=== PATIENT | female | born 1935 | race Caucasian/White ===

== ENCOUNTER 2017-09-04 14:22 | Emergency (ER) | payer OTHER ==
[~2017-09-04 14:22] MED LIST: ALBUAER19 INH; CHOL1000 PO; GABA100C13 PO; LANS30CA63 PO; LORA0.5T12 PO; LOSA100T65 PO; NEBI10TA2 PO; TRAM-453 PO; WARF-246 PO
[2017-09-04 14:25] VITALS: TEMP 36.3
[2017-09-04 15:02] VITALS: O2SAT 97
--- NOTE | 2017-09-04 15:05 | EMERGENCY ROOM VISIT NOTE ---
History Report prepared by Tomasa: Priyanka Nguyen Under the Supervision of: Dr. Avery Parks M.D. First contact with patient: 14:27 Chief Complaint: CHEST PAIN Stated Complaint: CHEST PAIN History of Present Illness The patient is an 81 year old white female with a past medical history of anxiety, osteoarthritis, hypertension, GERD, DVT who presents to the ED with a cc of persistent chest pain beginning 1 week ago. The pain worsens with exertion and breathing. Positive left arm pain, left neck pain, cough, lightheadedness, SOB, high blood pressure. Negative nausea, vomiting, fever, chills, change in leg swelling. Her INR was 1.2 last week. No recent falls or overuse of arm. She has been under increased stress recently. Her father had heart problems in his early 70s. Source of History: patient, family Onset: 1 week ago Position: chest Timing: other (persistent) Modifying Factors (Worsening): exertion, breathing Associated Symptoms: + cough, + neck pain, + SOB, No fevers, No chills, No nausea, No vomiting Note: Pt reports lightheadedness, left arm pain, high blood pressure. Review of Systems See HPI for pertinent positives and negatives. A total of ten systems were reviewed and were otherwise negative. Past Medical & Surgical Medical Problems: (1) Anxiety (2) Chronic osteoarthritis (3) Deep venous thrombosis of lower extremity (4) Essential hypertension (5) Gastroesophageal reflux disease Family History Cancer Heart disease Hypertension Social History Smoking Status: Never Smoker Marital Status: Housing Status: lives with family Occupation Status: retired Current/Historical Medications Scheduled Albuterol Hfa (Ventolin Hfa), 2-4 PUFFS INH Q6H Cholecalciferol (Vitamin D3), 2,000 INTER.UNIT PO HS Losartan Potassium (Cozaar), 100 MG PO DAILY Nebivolol Hcl (Bystolic), 10 MG PO DAILY Tramadol Hcl (Ultram), 50 MG PO HS Warfarin Sodium (Warfarin Sodium), 10 MG PO DAILY UD Scheduled PRN Lansoprazole (Prevacid), 30 MG PO DAILY PRN Lorazepam (Lorazepam), 0.5 MG PO DAILY PRN Allergies Coded Allergies: Codeine (Verified Allergy, Unknown, HAS HAD MORPHINE,OXYCONTIN W/O PROBLEM , 09/04/17) Physical Exam Vital Signs Date Time Temp Pulse Resp B/P (MAP) Pulse Ox O2 Delivery O2 Flow Rate FiO2 09/04/17 17:43 65 18 143/79 97 Room Air 09/04/17 16:22 69 18 157/82 96 Room Air 157/92 09/04/17 16:01 156/87 09/04/17 15:31 149/99 09/04/17 15:23 62 18 155/83 96 Room Air 09/04/17 15:22 62 17 96 09/04/17 15:14 64 09/04/17 15:02 97 Room Air 09/04/17 15:02 97 Room Air 09/04/17 15:01 155/83 09/04/17 14:25 36.3 72 20 168/92 97 Room Air Physical Exam GENERAL: Awake, alert, well-appearing, NAD HENT: Normocephalic, atraumatic. EYES: Normal conjunctiva. Sclera non-icteric. NECK: Supple. No nuchal rigidity. FROM. No bruits. RESPIRATORY: CTAB, no rhonchi, wheezing, crackles CARDIAC: RRR, no MRG ABDOMEN: Soft, NTND, BS+ MSK: No chest wall TTP. LLE greater than RLE edema, chronic. NEURO: GCS 15, CN 2-12 intact, moves all 4s on command SKIN: No rash or jaundice noted. Medical Decision & Procedures ER Provider Diagnostic Interpretation: Radiology results as stated below per my review and radiologist interpretation: SINGLE VIEW CHEST CLINICAL HISTORY: Atypical chest pain. FINDINGS: An AP, portable, upright chest radiograph is compared to study dated 04/08/2016. The examination is degraded by portable technique and patient rotation. The heart is enlarged and there is atherosclerotic calcification of the thoracic aorta. The pulmonary vasculature is noncongested. Chronic interstitial thickening is similar to previous. No airspace consolidation or large pleural effusion is identified. The lungs and pleural spaces are clear. No pneumothorax is seen. The skeletal structures are osteopenic. Degenerative changes noted in the shoulders. IMPRESSION: Cardiomegaly with no acute cardiopulmonary abnormality. Electronically signed by: Mekhi Jesus M.D. 09/04/2017 3:06 PM Dictated Date/Time: 09/04/2017 3:05 PM Laboratory Results 09/04/17 15:14 Red Blood Count 4.14, Mean Corpuscular Volume 89.1, Mean Corpuscular Hemoglobin 30.0, Mean Corpuscular Hemoglobin Concent 33.6, Mean Platelet Volume 10.8, Neutrophils (%) (Auto) 58.9, Lymphocytes (%) (Auto) 25.9, Monocytes (%) (Auto) 10.1, Eosinophils (%) (Auto) 4.3, Basophils (%) (Auto) 0.4, Neutrophils # (Auto ) 3.17, Lymphocytes # (Auto) 1.39, Monocytes # (Auto) 0.54, Eosinophils # (Auto ) 0.23, Basophils # (Auto) 0.02 09/04/17 15:14 Test 09/04/17 15:14 09/04/17 16:40 White Blood Count 5.37 K/uL (4.8-10.8) Red Blood Count 4.14 M/uL (4.2-5.4) Hemoglobin 12.4 g/dL (12.0-16.0) Hematocrit 36.9 % (37-47) Mean Corpuscular Volume 89.1 fL (80-100) Mean Corpuscular Hemoglobin 30.0 pg (25-34) Mean Corpuscular Hemoglobin Concent 33.6 g/dl (32-36) Platelet Count 215 K/uL (130-400) Mean Platelet Volume 10.8 fL (7.4-10.4) Neutrophils (%) (Auto) 58.9 % Lymphocytes (%) (Auto) 25.9 % Monocytes (%) (Auto) 10.1 % Eosinophils (%) (Auto) 4.3 % Basophils (%) (Auto) 0.4 % Neutrophils # (Auto) 3.17 K/uL (1.4-6.5) Lymphocytes # (Auto) 1.39 K/uL (1.2-3.4) Monocytes # (Auto) 0.54 K/uL (0.11-0.59) Eosinophils # (Auto) 0.23 K/uL (0-0.5) Basophils # (Auto) 0.02 K/uL (0-0.2) RDW Standard Deviation 44.8 fL (36.4-46.3) RDW Coefficient of Variation 13.7 % (11.5-14.5) Immature Granulocyte % (Auto) 0.4 % Immature Granulocyte # (Auto) 0.02 K/uL (0.00-0.02) Prothrombin Time 23.7 SECONDS (9.0-12.0) Prothromb Time International Ratio 2.3 (0.9-1.1) Activated Partial Thromboplast Time 38.9 SECONDS (21.0-31.0) Partial Thromboplastin Ratio 1.5 D-Dimer 240 ug/L FEU (0-500) Anion Gap 8.0 mmol/L (3-11) Estimated GFR () 95.3 Estimated GFR (Non- 82.3 BUN/Creatinine Ratio 27.4 (10-20) Calcium Level 8.4 mg/dl (8.5-10.1) Total Bilirubin 0.3 mg/dl (0.2-1) Direct Bilirubin < 0.1 mg/dl (0-0.2) Aspartate Amino Transf (AST/SGOT) 12 U/L (15-37) Alanine Aminotransferase (ALT/SGPT) 21 U/L (12-78) Alkaline Phosphatase 103 U/L (45-117) Pro-B-Type Natriuretic Peptide 400 pg/ml (0-1800) Total Protein 6.2 gm/dl (6.4-8.2) Albumin 3.3 gm/dl (3.4-5.0) Lipase 186 U/L (73-393) Troponin I < 0.015 ng/ml (0-0.045) Laboratory results reviewed by me Medications Administered Medications (Trade) Dose Ordered Sig/Homer Route Start Time Stop Time Status Last Admin Dose Admin Acetaminophen (Tylenol Tab) 650 mg NOW STAT PO 09/04/17 16:12 09/04/17 16:13 DC 09/04/17 16:52 650 MG ECG Per My Interpretation Indication: chest pain Rate (beats per minute): 71 Rhythm: normal sinus Findings: T-wave inversion (V2), other (normal intervals, normal axis, no other STS changes or TWI) Comparison ECG Date: 08-Apr-2016 Change: Changes in V2 are new. ED Course 1431: The patient was evaluated in room A12B. A complete history and physical exam was performed. 1609: I reevaluated the patient. I updated the patient on the results. If repeat troponin is negative she will follow up with her primary tenant relations coordinator. She is in agreement with the plan. 1757: I reevaluated the patient. Discussed results and discharge instructions: They verbalized understanding and agreement. The patient is ready for discharge. Medical Decision Nursing notes reviewed. Ancillary studies and prior records reviewed. The patient is an 81 year old white female with a past medical history of anxiety, osteoarthritis, hypertension, GERD, DVT who presents to the ED with a cc of persistent chest pain beginning 1 week ago. Etiologies such as cardiac ischemia, aortic dissection, pulmonary embolism, pneumonia, pneumothorax, musculoskeletal, infections, gastrointestinal, as well as others were entertained. Patient was seen and evaluated the bedside. Patient does have a known history of hypertension and prior DVT. Patient does complain of this feeling that overcomes her. Patient describes some chest pain that is mildly exertional with associated shortness of breath. Patient also does state that she has some pain in her left neck and left upper extremity. This is questionably acute on chronic. Of note patient's INR was subtherapeutic approximately a week prior. Patient does have chronic left lower extremity swelling compared to right lower extremity. Patient did have blood work completed along with coagulation studies, EKG, troponin, chest x-ray. Patient also did have a d-dimer completed. EKG did show new TWI in V2. INR is therapeutic. BMP within normal limits. Patient does have mild hypocalcemia. Patient hemoglobin normal. White blood cell count within normal limits. Patient's d-dimer was normal. Given this I do not believe that she requires further imaging of the chest with the lower extremities given the chronic DVT that she has with no acute change in swelling. Less likely PE or worsening DVT. Patient did have one subtle change in V2. The patient has no active chest pain and has a negative troponin. I did discuss this with the patient and suggested that we check a repeat troponin. If this is negative she should go home and follow-up with her primary tenant relations coordinator in [place]. Patient also did describe this left shoulder and left-sided neck pain. I do believe that these are unrelated to her chest discomfort as she states that these are more chronic in nature. The patient was given some Tylenol. Patient's pain did improved. Patient is agreeable to this plan of care. I also believe that this is reasonable at this time. Patient's repeat troponin was undetectable. Patient was deemed suitable for outpatient follow-up and treatment at this time. Patient was given strict follow-up, discharge, and return precautions. All questions were answered. Patient was deemed suitable for outpatient follow-up at this time. Patient agreed with the plan of care and was safely discharged home. Medication Reconcilliation Current Medication List: was personally reviewed by me Blood Pressure Screening Patient's blood pressure: Elevated blood pressure Blood pressure disposition: Referred to PCP Impression Primary Impression: Non-cardiac chest pain Additional Impressions: Arm pain, left Anxiety Scribe Attestation The scribe's documentation has been prepared under my direction and personally reviewed by me in its entirety. I confirm that the note above accurately reflects all work, treatment, procedures, and medical decision making performed by me. Departure Information Dispostion Home / Self-Care Referrals Ml Herbert M.D. (PCP) Patient Instructions Chest Pain - [facility], My [facility] Additional Instructions Please return to the emergency department if you have worsening or recurrent symptoms not amenable to at-home treatment. Please call for a follow-up appointment with her primary care physician. Please take your medications as prescribed. If you have other concerns and/or complaints please feel free to also call your primary care physician's office or return the ED for further evaluation, management, and treatment. You may take tylenol 650 mg every 6 hours as needed for pain. Please follow-up with your tenant relations coordinator to discuss your EKG. Take your medications as prescribed. You have been examined and treated today on an emergency basis only. This is not a substitute for, or an effort to provide, complete comprehensive medical care. It is impossible to recognize and treat all injuries or illnesses in a single emergency department visit. It is therefore important that you follow up closely with [facility], your PCP, and/or your specialist(s). Call as soon as possible for an appointment. Thank you for your time and consideration. I look forward to speaking with you again soon. Please don't hesitate to call us if you have any questions. Problem Qualifiers
[2017-09-04 15:24] LABS: BASO % 0.4 %; BASO ABS # 0.02 K/uL (0-0.2); EOS % 4.3 %; EOS ABS # 0.23 K/uL (0-0.5); HEMATOCRIT 36.9 % (37-47); HEMOGLOBIN 12.4 g/dL (12.0-16.0); IG# 0.02 K/uL (0.00-0.02); LYMPH % 25.9 %; LYMPH ABS # 1.39 K/uL (1.2-3.4); MEAN CELL VOLUME 89.1 fL (80-100); MEAN CORPUSCULAR HGB CONC 33.6 g/dl (32-36); MEAN PLATELET VOLUME 10.8 fL (7.4-10.4); MONO % 10.1 %; MONO ABS # 0.54 K/uL (0.11-0.59); NEUT % 58.9 %; NEUT ABS # 3.17 K/uL (1.4-6.5); PLATELET COUNT 215 K/uL (130-400); RED CELL DISTRIBUTION WIDTH CV 13.7 % (11.5-14.5); RED CELL DISTRIBUTION WIDTH SD 44.8 fL (36.4-46.3); WHITE BLOOD COUNT 5.37 K/uL (4.8-10.8)
[2017-09-04] MEDS ORDERED: VNTHFA/IN INH (15:34)
[2017-09-04 15:35] LABS: INR 2.3 (0.9-1.1); PTT PATIENT 38.9 SECONDS (21.0-31.0)
[2017-09-04 15:42] LABS: ALBUMIN 3.3 gm/dl (3.4-5.0); ALT/SGPT 21 U/L (12-78); BLOOD UREA NITROGEN 18 mg/dl (7-18); CALCIUM 8.4 mg/dl (8.5-10.1); CARBON DIOXIDE 24 mmol/L (21-32); CREATININE 0.66 mg/dl (0.60-1.20); GLUCOSE 95 mg/dl (70-99); LIPASE 186 U/L (73-393); POTASSIUM 3.8 mmol/L (3.5-5.1); SODIUM 138 mmol/L (136-145)
[2017-09-04 15:51] LABS: ALKALINE PHOSPHATASE 103 U/L (45-117); AST/SGOT 12 U/L (15-37); TOTAL PROTEIN 6.2 gm/dl (6.4-8.2)
[2017-09-04] MEDS ORDERED: ACETAMINOPHEN 325 MG TAB PO STA (16:12)
[2017-09-04 17:43] VITALS: BP 143/79; PULSE 65; O2SAT 97
== END 2017-09-04 18:39 | disposition home or self-care (01) ==
LOC: C.EDB 14:25 → C.EDA 18:39
DX: R07.89 Other chest pain (principal); M79.602 Pain in left arm; F41.9 Anxiety disorder, unspecified; M19.90 Unspecified osteoarthritis, unspecified site; I10 Essential (primary) hypertension; Z82.49 Family history of ischemic heart disease and other diseases of the circulatory system; Z79.01 Long term (current) use of anticoagulants; Z51.81 Encounter for therapeutic drug level monitoring; Z88.5 Allergy status to narcotic agent

== ENCOUNTER 2017-09-18 18:08 | Emergency (ER) | payer OTHER ==
[~2017-09-18 18:08] MED LIST changes: -ALBUAER19 INH; -CHOL1000 PO; -GABA100C13 PO; -LANS30CA63 PO; -LORA0.5T12 PO; -NEBI10TA2 PO; -TRAM-453 PO; +VNTHFA/IN INH; -WARF-246 PO
[2017-09-18 18:12] VITALS: TEMP 36.7
--- NOTE | 2017-09-18 18:33 | EMERGENCY ROOM VISIT NOTE ---
History Report prepared by Tomasa: William Machado Under the Supervision of: Dr. Avery Parks M.D. First contact with patient: 18:20 Chief Complaint: FOOT PAIN Stated Complaint: CAN'T WALK ON LT FOOT History of Present Illness The patient is an 81 year old white female with a past medical history of DVT of the LE, HTN, GERD, osteoarthritis who presents to the ED with a cc of intermittent left foot pain beginning two days ago. Pt states she could not walk two days ago, and movement increases her discomfort. She notes she soaked it in hot water today. Positive nausea. Negative stubbing her foot, hurting her foot, falling, vomiting, fever, chills. Pt is currently on Coumadin for the DVT. She notes she has a stress test tomorrow for evaluation of her two leaky valves. Source of History: patient Onset: two days ago Position: foot (left) Timing: intermittent Modifying Factors (Worsening): movement, other (walking) Associated Symptoms: + nausea, No fevers, No chills, No vomiting Review of Systems See HPI for pertinent positives and negatives. A total of ten systems were reviewed and were otherwise negative. Past Medical & Surgical Medical Problems: (1) Anxiety (2) Chronic osteoarthritis (3) Deep venous thrombosis of lower extremity (4) Essential hypertension (5) Gastroesophageal reflux disease Family History Cancer Heart disease Hypertension Social History Smoking Status: Never Smoker Marital Status: Housing Status: lives with family Occupation Status: retired Current/Historical Medications Scheduled Cholecalciferol (Vitamin D3), 2,000 INTER.UNIT PO HS Losartan Potassium (Cozaar), 100 MG PO QAM Nebivolol Hcl (Bystolic), 10 MG PO QAM Warfarin Sodium (Warfarin Sodium), 5 MG PO UD Scheduled PRN Albuterol Hfa (Ventolin Hfa), 2-4 PUFFS INH Q6H PRN for SOB/Wheezing Lansoprazole (Prevacid), 30 MG PO DAILY PRN for Indigestion Lorazepam (Lorazepam), 0.5 MG PO DAILY PRN for Anxiety Tramadol Hcl (Ultram), 50 MG PO HS PRN for Pain Allergies Coded Allergies: Codeine (Verified Allergy, Unknown, HAS HAD MORPHINE,OXYCONTIN W/O PROBLEM , 09/04/17) Physical Exam Vital Signs Date Time Temp Pulse Resp B/P (MAP) Pulse Ox O2 Delivery O2 Flow Rate FiO2 4/16/18 18:12 36.7 76 20 159/91 98 Room Air Physical Exam GENERAL: Awake, alert, well-appearing, NAD. Wearing glasses. HENT: Normocephalic, atraumatic. EYES: Normal conjunctiva. Sclera non-icteric. NECK: Supple. No nuchal rigidity. FROM. RESPIRATORY: CTAB, no rhonchi, wheezing, crackles CARDIAC: RRR, no MRG ABDOMEN: Soft, NTND, BS+ MSK: No chest wall TTP, Left leg: Trace LE edema that is non-pitting. No erythema, calor, or effusion. Good DP pulses. No allodynia. No reproducible pain over the mid, hind, or front foot. No pain with eversion and inversion of the left ankle. NEURO: GCS 15, CN 2-12 intact, moves all 4s on command SKIN: No rash or jaundice noted. Medical Decision & Procedures ER Provider Diagnostic Interpretation: X-ray: Per my interpretation, radiologist review. L FOOT MIN 3 VIEWS ROUTINE HISTORY: 81 years-old Female 3 VIEW INSTEAD OF 2 VIEW acute left foot pain COMPARISON: None available TECHNIQUE: 3 views of the left foot FINDINGS: Bones are mildly demineralized. Moderate interphalangeal degenerative changes are noted throughout the foot with mild to moderate first MTP joint osteoarthritis. Moderate plantar enthesophyte about the calcaneus with probable small fragmented component measuring 3 mm. Large dorsal spur about the navicular. There is no acute fracture or dislocation. Mild soft tissue prominence about the fifth MTP joint. IMPRESSION: 1. No acute fracture or dislocation. 2. Osteopenic appearance of the bones with degenerative changes as above. 3. Mild soft tissue prominence about the fifth MTP joint. The above report was generated using voice recognition software. It may contain grammatical, syntax or spelling errors. Electronically signed by: Milo Zaidi M.D. 09/18/2017 6:57 PM Dictated Date/Time: 09/18/2017 6:55 PM Medications Administered Medications (Trade) Dose Ordered Sig/Homer Route Start Time Stop Time Status Last Admin Dose Admin Tramadol HCl (Ultram Tab) 50 mg NOW STAT PO 09/18/17 18:34 09/18/17 18:36 DC 09/18/17 18:50 50 MG Acetaminophen (Tylenol Tab) 650 mg NOW STAT PO 09/18/17 18:34 09/18/17 18:36 DC 09/18/17 18:50 650 MG ED Course 1824: The patient was evaluated in room A09B. A complete history and physical exam was performed. 1901: I reevaluated the patient. Discussed results and discharge instructions: she verbalized understanding and agreement. The patient is ready for discharge. Medical Decision Nursing notes reviewed. Ancillary studies and prior records reviewed. The patient is an 81 year old white female with a past medical history of DVT of the LE, HTN, GERD, osteoarthritis who presents to the ED with a cc of intermittent left foot pain beginning two days ago. Differential diagnosis: Etiologies such as fracture, dislocation, neurovascular compromise, compartment syndrome, soft tissue injury, as well as others were entertained. Patient was seen and evaluated the bedside. Patient was complaining of some left foot pain. Patient states that this is been ongoing intermittently 2 days. Patient is noticed that she has difficulty with ambulation 2 days prior. On exam the patient has no evidence of effusion. Patient does have some chronic left lower extremity edema but is not very impressive and more or less not pitting. Patient has no erythema or calor. Less likely joint infection or gout. The patient has good DP pulses and the patient has no sensory deficits distally. Patient does have a history of DVT for which she is taking Coumadin. She does not appear to have skin changes concerning for ischemia or outflow obstruction i.e. very bad DVT. Patient has no allodynia in the compartments are soft. Patient did have a foot film completed. No additional Dopplers were completed as the patient had good DP pulses which makes me less likely to believe that the patient has an ischemic limb the patient has no allodynia, has soft compartments, and has good pulses without any sensory or motor deficits. I did discuss with the patient that given her foot film this is likely related to arthritic change in aging. Patient was deemed suitable for outpatient follow- up and treatment at this time. Patient was given strict follow-up, discharge, and return precautions. All questions were answered. Patient was deemed suitable for outpatient follow-up at this time. Patient agreed with the plan of care and was safely discharged home. Medication Reconcilliation Current Medication List: was personally reviewed by me Blood Pressure Screening Patient's blood pressure: Elevated blood pressure Blood pressure disposition: Referred to PCP Impression Primary Impression: Foot pain Scribe Attestation The scribe's documentation has been prepared under my direction and personally reviewed by me in its entirety. I confirm that the note above accurately reflects all work, treatment, procedures, and medical decision making performed by me. Departure Information Dispostion Home / Self-Care Referrals No Doctor, Assigned (PCP) Forms HOME CARE DOCUMENTATION FORM, IMPORTANT VISIT INFORMATION Patient Instructions Anatomy Foot, Arthritis Foot, My [facility] Additional Instructions Please return to the emergency department if you have worsening or recurrent symptoms not amenable to at-home treatment. Please call for a follow-up appointment with her primary care physician. Please take your medications as prescribed. If you have other concerns and/or complaints please feel free to also call your primary care physician's office or return the ED for further evaluation, management, and treatment. You may take Tylenol 650 mg as needed for pain. You may also still take a tramadol. Consider rest ice compression and elevation of the foot. Your pain may be related to some arthritis as well as some neuropathic pain. Please discuss with your physician but they are not he may benefit from neuropathy medications. He may also try topical and consider an ankle brace. Take your medications as prescribed. You have been examined and treated today on an emergency basis only. This is not a substitute for, or an effort to provide, complete comprehensive medical care. It is impossible to recognize and treat all injuries or illnesses in a single emergency department visit. It is therefore important that you follow up closely with [facility], your PCP, and/or your specialist(s). Call as soon as possible for an appointment. Thank you for your time and consideration. I look forward to speaking with you again soon. Please don't hesitate to call us if you have any questions. Problem Qualifiers Primary Impression: Foot pain Laterality: left Qualified Codes: M79.672 - Pain in left foot
[2017-09-18] MEDS ORDERED: TRAMADOL HCL 50 MG TAB PO STA (18:34)
[2017-09-18] MEDS ORDERED: ACETAMINOPHEN 325 MG TAB PO STA (18:34)
--- NOTE | 2017-09-18 18:59 | DIAGNOSTIC IMAGING REPORT ---
L FOOT MIN 3 VIEWS ROUTINE HISTORY: 81 years-old Female 3 VIEW INSTEAD OF 2 VIEW acute left foot pain COMPARISON: None available TECHNIQUE: 3 views of the left foot FINDINGS: Bones are mildly demineralized. Moderate interphalangeal degenerative changes are noted throughout the foot with mild to moderate first MTP joint osteoarthritis. Moderate plantar enthesophyte about the calcaneus with probable small fragmented component measuring 3 mm. Large dorsal spur about the navicular. There is no acute fracture or dislocation. Mild soft tissue prominence about the fifth MTP joint. IMPRESSION: 1. No acute fracture or dislocation. 2. Osteopenic appearance of the bones with degenerative changes as above. 3. Mild soft tissue prominence about the fifth MTP joint. The above report was generated using voice recognition software. It may contain grammatical, syntax or spelling errors. Electronically signed by: Milo Zaidi M.D. 09/18/2017 6:57 PM Dictated Date/Time: 09/18/2017 6:55 PM
[2017-09-18 19:48] VITALS: BP 149/90; PULSE 70; O2SAT 99
[2017-09-18] MEDS ORDERED: TRAM-453 PO (21:19)
[2017-09-18] MEDS ORDERED: NEBI10TA2 PO (21:19)
[2017-09-18] MEDS ORDERED: CHOL1000 PO (21:19)
[2017-09-18] MEDS ORDERED: WARF-246 PO (21:19)
[2017-09-18] MEDS ORDERED: LORA0.5T12 PO (21:19)
[2017-09-18] MEDS ORDERED: LANS30CA63 PO (21:19)
== END 2017-09-18 19:49 | disposition home or self-care (01) ==
LOC: C.EDB 18:09 → C.EDA 19:49
DX: M79.672 Pain in left foot (principal); Z86.718 Personal history of other venous thrombosis and embolism; I10 Essential (primary) hypertension; K21.9 Gastro-esophageal reflux disease without esophagitis; M19.90 Unspecified osteoarthritis, unspecified site; Z79.01 Long term (current) use of anticoagulants; F41.9 Anxiety disorder, unspecified; Z80.9 Family history of malignant neoplasm, unspecified; Z82.49 Family history of ischemic heart disease and other diseases of the circulatory system; Z79.899 Other long term (current) drug therapy

== ENCOUNTER → 2017-12-20 | Outpatient (CLI) | payer OTHER ==
[~2017-12-20] MED LIST changes: +CHOL1000 PO; +LANS30CA63 PO; +LORA0.5T12 PO; +NEBI10TA2 PO; +TRAM-453 PO; +WARF5TAB7 PO
[2017-12-20 16:51] LABS: INR 2.3 (0.9-1.1)
== END | disposition home or self-care (01) ==
LOC: C.LABPBG 13:51
PROVIDERS: ATTEND Family Medicine
DX: I82.509 Chronic embolism and thrombosis of unspecified deep veins of unspecified lower extremity (principal)

== ENCOUNTER → 2018-01-15 | Outpatient (CLI) | payer OTHER ==
[2018-01-15 14:18] LABS: ALBUMIN 3.3 gm/dl (3.4-5.0); ALKALINE PHOSPHATASE 89 U/L (45-117); ALT/SGPT 20 U/L (12-78); AST/SGOT 14 U/L (15-37); BLOOD UREA NITROGEN 17 mg/dl (7-18); CALCIUM 8.5 mg/dl (8.5-10.1); CARBON DIOXIDE 27 mmol/L (21-32); CHOLESTEROL 180 mg/dl (0-200); CREATININE 0.72 mg/dl (0.60-1.20); GLUCOSE,FASTING 89 mg/dl (70-99); LDL CHOLESTEROL CALCULATED 86 mg/dl; POTASSIUM 4.2 mmol/L (3.5-5.1); SODIUM 141 mmol/L (136-145); TOTAL PROTEIN 6.4 gm/dl (6.4-8.2)
== END | disposition home or self-care (01) ==
LOC: C.LABPBG 07:12
PROVIDERS: ATTEND Physician Assistant
DX: Z00.00 Encounter for general adult medical examination without abnormal findings (principal)

== ENCOUNTER 2024-05-01 11:53 | Inpatient (IN) ==
[2024-05-01] MEDS: ONDANSETRON INJ 2 MG/ML 2 ML VIAL IV STA (12:34)
[2024-05-01] MEDS: ONDANSETRON INJ 2 MG/ML 2 ML VIAL ONE (12:34)
--- NOTE | 2024-05-01 12:46 | CT Scan Report ---
EXAM: CT Head Without Intravenous Contrast INDICATION: Fall. Anticoagulated. TECHNIQUE: Axial computed tomography images of the head/brain without intravenous contrast. Sagittal and/or coronal reformats are provided. Sagittal and coronal reformatted images were created and reviewed. This CT exam was performed using one or more of the following dose reduction techniques: automated exposure control, adjustment of the mA and/or kV according to patient size, and/or use of iterative reconstruction technique. COMPARISON: No relevant prior studies available. FINDINGS: Limitations: None. Brain and extra-axial spaces: There is age appropriate cortical atrophy and chronic ischemic periventricular white matter hypodensity. No acute infarct, hemorrhage or mass noted. Bones/joints: Imaging includes orbits and maxillary sinuses. No fracture noted. Soft tissues: There is a laceration and hematoma of the right frontal and periorbital soft tissues. Vasculature: No acute abnormality noted. Sinuses: There is mild bilateral frontal and right maxillary sinus mucosal thickening. Widely patent bilateral maxillary antrectomy defects noted. No layering sinus fluid. Mastoid air cells: No mastoid effusion. Orbits: No significant abnormality noted. IMPRESSION: 1. There is a laceration and hematoma of the right frontal and periorbital soft tissues. 2. Cerebral atrophy. No acute changes. ACT 112: Negative or not required by law. Electronically signed by Jasmin Yadav 05-01-2024 12:45 PM
--- NOTE | 2024-05-01 12:57 | CT Scan Report ---
CT OF THE CERVICAL SPINE WITHOUT CONTRAST CLINICAL HISTORY: Fall. COMPARISON STUDY: Cervical spine CT April 09, 2021. TECHNIQUE: Helical axial images of the cervical spine were obtained without IV contrast. Sagittal a nd coronal reconstructions were viewed. Automated exposure control was utilized for the study. A do se lowering technique was utilized adhering to the principles of ALARA. FINDINGS: There are no cervical spine fractures. Severe degenerative changes at the C1-C2 articulatio n are noted. There is severe multilevel facet arthrosis and moderate degenerative disc disease. Centr al canal and neural foramen are suboptimally assessed given CT technique. Interlobular septal thicken ing and partially visualize bilateral pleural effusions within the lung apices are noted. IMPRESSION: 1. No acute cervical spine fracture or subluxation. 2. Interstitial pulmonary edema and partially visualizes bilateral pleural effusions within the lung apices. ACT 112: Negative or not required by law. Electronically signed by: Hernandez Cuadra M.D. 05/01/2024 12:56 PM
--- NOTE | 2024-05-01 13:32 | XRay Report ---
EXAM: Radiograph of the Chest 1 View INDICATION: Aspiration. TECHNIQUE: Frontal view of the chest. COMPARISON: 07/17/2023 FINDINGS: Lungs and pleural spaces: There is new generalized interstitial thickening. New patchy infiltrates in both lung bases left greater than right and trace left pleural effusion. No pneumothorax. Heart: Stable cardiomegaly. Mediastinum: Normal contour. Bones/joints: Degenerative changes noted throughout the spine and both shoulders. No lytic or blastic lesions noted. Soft tissues: No abnormality noted. No radiopaque foreign body noted. Upper abdomen: No abnormality noted. IMPRESSION: Generalized pneumonitis with left lower lobe pneumonia and small pleural effusion. Left basilar infiltrate could reflect the consequence of mucous plugging. Findings typical of but not diagnostic for aspiration. ACT 112: Negative or not required by law. Electronically signed by Jasmin Yadav 05-01-2024 13:11 PM
[2024-05-01] MEDS: DIPHTHER/TETAN/PERTUS Vaccine (Tdap, Adol/Adult) 0.5mL IM ONE (13:36)
[2024-05-01] MEDS: cefTRIAXone SODIUM 2,000 MG/50 ML BAG IV STA (13:52)
[2024-05-01] MEDS: METOCLOPRAMIDE HCL INJ 5 MG/ML 2 ML VIAL IM STA (13:53)
[2024-05-01] MEDS: METOCLOPRAMIDE HCL INJ 5 MG/ML 2 ML VIAL IV STA (13:54)
[2024-05-01 13:58] LABS: Basophils # (auto) 0.04 K/uL (0.00-0.20); Basophils % (auto) 0.3 %; Eosinophils % (auto) 0.7 %; Hematocrit (blood only) 39.4 % (37.0-47.0); Immature Granulocytes # (auto) 0.08 K/uL (0.01-0.20); Immature Granulocytes % (auto) 0.6 %; Lymphocytes % (auto) 9.3 %; Mean Corpuscular Hemoglobin 29.1 pg (25.0-34.0); Mean Corpuscular Volume 88.1 fL (80.0-100.0); Mean Platelet Volume 11.2 fL (9.4-12.4); Monocytes # (auto) 0.94 K/uL (0.11-0.59); Monocytes % (auto) 6.7 %; Neutrophils # (auto) 11.49 K/uL (1.40-6.50); Neutrophils % (auto) 82.4 %; Platelet Count 291 K/uL (130-400); RDW Coefficient of Variation 14.4 % (11.5-14.5); RDW Standard Deviation 46.4 fL (36.4-46.3); Red Blood Count 4.47 M/uL (4.20-5.40); White Blood Count 13.95 K/ul (4.8-10.8)
[2024-05-01] MEDS: AZITHROMYCIN 250 MG TAB PO ONE (14:00)
--- NOTE | 2024-05-01 14:07 | Emergency Department Note ---
Impression & Plan Aspiration pneumonia, UTI (urinary tract infection), Head injury, Laceration of head ED Provider Note NAME: MARIMAR ARGUETA AGE: 88 SEX: F : 1935 ARRIVES VIA: Ambulance INFORMANT: Patient, ED PROVIDER(S): Kathy Christie MD CHIEF COMPLAINT: Fall, laceration HPI: This an 88-year-old female presenting after a fall. Patient was found by her son this morning after hearing her fall. She reportedly fell and struck her right eyebrow/head against a dresser. There is no LOC but she is on Eliquis. She was recently diagnosed with UTI after being found confused for the past 2 to 3 days. She started antibiotics last night. They states she still is confused. Otherwise she reports no vision changes, c weakness. She does feel somewhat nauseous at this time. ROS: See above HPI for pertinent positives & negatives. A total of 10 systems reviewed and were otherwise negative. PAST MEDICAL HISTORY: See Below PAST SURGICAL HISTORY: See Below FAMILY HISTORY: See Below SOCIAL HISTORY: See Below HOME MEDICATIONS: See Below ALLERGIES: See Below VITALS: See Below PHYSICAL EXAMINATION: General: Chronically ill-appearing, retching Head: Normocephalic significant right-sided periorbital edema/ecchymosis, small 0.5 cm linear laceration to the right forehead Eyes: Normal inspection, extraocular muscles intact Ear, nose, throat: Normal external exam Neck: In c-collar Respiratory: lungs clear to auscultation bilaterally Cardiovascular: Regular rate/rhythm, no murmur GI: soft, nontender, no guarding or rebound Extremities: nontender, moves all extremities Neuro: The patient awake and alert, appropriately conversive, no focal deficits, symmetric faces Skin: Warm, dry, and intact MEDICAL DECISION MAKING: This is a an 88-year-old female presenting after a fall. Patient is confused the past few days due to UTI currently being treated. She also had a fall. She is now actively retching/vomiting. Concern for aspiration ammonia. Will order head CT, C-spine CT and chest x-ray. Will order blood work. Do not believe patient is safe discharge plan with her confusion, now aspiration. -Chest Xray independently interpreted by me showing multifocal opacities concerning for pneumonia versus aspiration -Patient CT of the head/C-spine do not reveal traumatic injury. The C-spine CT did reveal interstitial pulmonary edema/pleural effusions at lung apices -Care discussed with Dr. De Leon for admission Location: Right forehead Total length: 0.5 cm Complexity: Simple Verbal consent was obtained after the risks and benefits were explained, including but not limited to bleeding, scarring, infection, pain, and bone/joint/nerve damage. At this time, the risks of the procedure are less than the risks of NOT performing the procedure. A time out was taken and the correct patient and site identified. The skin was prepped with betadine.Copious irrigation was performed using saline the skin was re-prepped with betadine and a sterile field set. The wound was explored for foreign bodies and none found. Examination revealed no injury to deep structures such as tendons, bone, or significant blood vessels. Debridement was not performed. The wound edges were approximated using 1, 5-0 simple interrupted nylon sutures. Hemostasis and excellent approximation was achieved. Antibacterial ointment and a sterile dressing applied. Detailed wound care instructions and signs and symptoms of infection reviewed with the sons. No complications and the patient tolerated the procedure well. Differential diagnosis: Intracranial hemorrhage, cervical spine fracture, aspiration pneumonia, CAP, UTI Independent History obtained from: Son's Diagnostics interpreted by me: ECG: None Cardiac Monitoring: An order was placed for continuous cardiac monitoring. The monitor shows a rate of 59 with sinus rhythm. 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 Hypertension (Chronic) Insomnia (Chronic) Mitral regurgitation (Chronic) "Mild" follows with [facility] ([facility]) Urinary Incontinence Diverticulosis Lumbar disc disease TMJ arthritis --per medical record, son is unsure. 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 Son No problems noted. Son No problems noted. Son No problems noted. Son No problems noted. Other No family history of adverse response to anesthesia No pertinent family history Denies family history of Colon cancer Ovarian cancer Prostate cancer Myocardial infarction Social History Smoking Status: Never smoker Second Hand Exposure: Yes (As a child); Hx Alcohol Use: No Hx Substance Use: No Preferred Language: Kyrgyz Communication Ability: Effective Communication Ability Comment: alert and oriented x3 "most times" - carter KHANNA Visual Impairment: No Limitations Hearing Ability: Hard of Hearing Manufacturing Maintenance Manager Required: No Beliefs That Will Affect Care: None marital status: Current Living Situation: Family Current Living Situation Comment: Apt in son's (Sabas's) basement ( in a alf in [place]) current occupational status: retired and other current occupation: Housewife How many Children do You have: 5 Feels Safe at Home: Yes Childhood Exposure to Second-Hand Smoke: Yes Diet: regular caffeine: Yes (3-4 cups/day) during the past year weight has: remained stable Physical Activity Frequency Comment: walking Seatbelt Use: always Assistive Devices: Hearing Aid - Bilateral and Walker Allergies Allergies Allergy/AdvReac Type Severity Reaction Status Date / Time codeine Allergy Unknown unknown Verified 02/28/24 09:08 reaction Home Meds Home Medications Medication Instructions Recorded Confirmed multivitamin (Daily Multi-Vitamin 1 tab PO QAM 02/12/19 02/28/24 tablet) nitroglycerin 0.4 mg sublingual 0.4 mg sublingual DIRECTED PRN 04/09/21 02/28/24 tablet (Nitrostat) Chest Pain cholecalciferol (vitamin D3) 25 25 mcg PO QAM 02/27/23 02/28/24 mcg (1,000 unit) tablet (Vitamin D3) cranberry extract 50 mg chewable 100 mg PO QAM 02/27/23 02/28/24 tablet cyanocobalamin (vitamin B-12) 1,000 mcg IM MONTHLY 02/27/23 02/28/24 1,000 mcg/mL injection solution conjugated estrogens 0.625 mg/gram 0.625 mg vaginal DAILY 04/17/23 02/28/24 vaginal cream Previous Rx's Medication Instructions Recorded Wheeled Walker #1 ea 05/20/22 methenamine hippurate 1 gram 1 g PO BID #180 tabs 04/17/23 tablet (Hiprex) vibegron 75 mg tablet (Gemtesa) 75 mg PO QAM #90 tabs 08/04/23 lansoprazole 30 mg capsule,delayed 30 mg PO QAM #90 caps 11/01/23 release (Prevacid) nebivolol 10 mg tablet (Bystolic) 10 mg PO QAM #90 tabs 12/25/23 escitalopram oxalate 10 mg tablet 10 mg PO QAM #90 tabs 01/15/24 apixaban 5 mg tablet (Eliquis) 5 mg PO BID #180 tabs 03/14/24 losartan 100 mg tablet (Cozaar) 100 mg PO QAM #90 tabs 03/18/24 anastrozole 1 mg tablet 1 mg PO DAILY #90 tabs 04/17/24 nitrofurantoin 100 mg PO BID 7 days #14 caps 05/01/24 monohydrate/macrocrystals 100 mg capsule (Macrobid) Results & Data (ED) Vital Signs Vital Signs - 24 hr 05/01/24 11:58 05/01/24 12:23 Temperature 36.7 C Temperature Source Oral Pulse Rate 60 59 L Pulse Rhythm Regular Pulse Strength Normal Respiratory Rate 18 Respiratory Effort / Characteristics Non-Labored Respiratory Depth Normal Respiratory Pattern Regular Blood Pressure 170/91 H Blood Pressure Mean 117 Blood Pressure Position Lying Pulse Oximetry 93 Oxygen Delivery Method Room Air Sepsis Recent Fever Within 48 Hours No Sepsis New/Unexplained Change in Mental Status N/A Sepsis Action Taken by Nursing No Action Required Laboratory Data 05/01/24 13:30 05/01/24 13:30 Lab Results 05/01/24 Range/Units 13:30 WBC 13.95 H (4.8-10.8) K/ul RBC 4.47 (4.20-5.40) M/uL Hgb 13.0 (12.0-16.0) g/dl Hct 39.4 (37.0-47.0) % MCV 88.1 (80.0-100.0) fL MCH 29.1 (25.0-34.0) pg MCHC 33.0 (32.0-36.0) g/dL RDW Std Deviation 46.4 H (36.4-46.3) fL RDW Coeff of Cecy 14.4 (11.5-14.5) % Plt Count 291 (130-400) K/uL MPV 11.2 (9.4-12.4) fL Immature Gran % (Auto) 0.6 % Neut % (Auto) 82.4 % Lymph % (Auto) 9.3 % Carver % (Auto) 6.7 % Eos % (Auto) 0.7 % Baso % (Auto) 0.3 % Neut # (Auto) 11.49 H (1.40-6.50) K/uL Lymph # (Auto) 1.30 (1.20-3.40) K/uL Carver # (Auto) 0.94 H (0.11-0.59) K/uL Eos # (Auto) 0.10 (0.00-0.50) K/uL Baso # (Auto) 0.04 (0.00-0.20) K/uL Immature Gran # (Auto) 0.08 (0.01-0.20) K/uL Administered Medications Discontinued Medications Diphtheria/Pertussis/Tetanus Vacc (Diphther/Tetan/Pertus Vaccine (Tdap, Adol/Adult) 0.5ml) 0.5 ml IM .ONCE ONE Stop: 05/01/24 13:08 Last Admin: 05/01/24 13:36 Dose: 0.5 ml Documented By: KEVIN Ceftriaxone Sodium (Rocephin) 2,000 mg in 50 mls @ 100 mls/hr IV NOW STA Stop: 05/01/24 14:02 Last Admin: 05/01/24 13:52 Dose: 100 mls/hr Documented By: CHRISTOPHER Metoclopramide HCl (Metoclopramide Hcl Inj 5 Mg/Ml 2 Ml Vial) 10 mg IM NOW STA Stop: 05/01/24 13:28 Last Admin: 05/01/24 13:53 Dose: Not Given Documented By: CHRISTOPHER Metoclopramide HCl (Metoclopramide Hcl Inj 5 Mg/Ml 2 Ml Vial) 10 mg IV NOW STA Stop: 05/01/24 13:53 Last Admin: 05/01/24 13:54 Dose: 10 mg Documented By: CHRISTOPHER Ondansetron HCl (Ondansetron Inj 2 Mg/Ml 2 Ml Vial) Confirm Administered Dose 4 mg .ROUTE .STK-MED ONE Stop: 05/01/24 12:29 Last Admin: 05/01/24 12:34 Dose: Not Given Documented By: KEVIN Ondansetron HCl (Ondansetron Inj 2 Mg/Ml 2 Ml Vial) 4 mg IV NOW STA Stop: 05/01/24 12:30 Last Admin: 05/01/24 12:34 Dose: 4 mg Documented By: KEVIN Imaging Data Radiologist's Impression: Cervical Spine CT 05/01/24 12:03 CT OF THE CERVICAL SPINE WITHOUT CONTRAST CLINICAL HISTORY: Fall. COMPARISON STUDY: Cervical spine CT April 09, 2021. TECHNIQUE: Helical axial images of the cervical spine were obtained without IV contrast. Sagittal and coronal reconstructions were viewed. Automated exposure control was utilized for the study. A dose lowering technique was utilized adhering to the principles of ALARA. FINDINGS: There are no cervical spine fractures. Severe degenerative changes at the C1-C2 articulation are noted. There is severe multilevel facet arthrosis and moderate degenerative disc disease. Central canal and neural foramen are suboptimally assessed given CT technique. Interlobular septal thickening and partially visualize bilateral pleural effusions within the lung apices are noted. IMPRESSION: 1. No acute cervical spine fracture or subluxation. 2. Interstitial pulmonary edema and partially visualizes bilateral pleural effusions within the lung apices. ACT 112: Negative or not required by law. Electronically signed by: Hernandez Cuadra M.D. 05/01/2024 12:[address] 05/01/24 12:03 EXAM: CT Head Without Intravenous Contrast INDICATION: Fall. Anticoagulated. TECHNIQUE: Axial computed tomography images of the head/brain without intravenous contrast. Sagittal and/or coronal reformats are provided. Sagittal and coronal reformatted images were created and reviewed. This CT exam was performed using one or more of the following dose reduction techniques: automated exposure control, adjustment of the mA and/or kV according to patient size, and/or use of iterative reconstruction technique. COMPARISON: No relevant prior studies available. FINDINGS: Limitations: None. Brain and extra-axial spaces: There is age appropriate cortical atrophy and chronic ischemic periventricular white matter hypodensity. No acute infarct, hemorrhage or mass noted. Bones/joints: Imaging includes orbits and maxillary sinuses. No fracture noted. Soft tissues: There is a laceration and hematoma of the right frontal and periorbital soft tissues. Vasculature: No acute abnormality noted. Sinuses: There is mild bilateral frontal and right maxillary sinus mucosal thickening. Widely patent bilateral maxillary antrectomy defects noted. No layering sinus fluid. Mastoid air cells: No mastoid effusion. Orbits: No significant abnormality noted. IMPRESSION: 1. There is a laceration and hematoma of the right frontal and periorbital soft tissues. 2. Cerebral atrophy. No acute changes. ACT 112: Negative or not required by law. Electronically signed by Jasmin Yadav 05-01-2024 12:45 PM Chest X-Ray 05/01/24 12:30 EXAM: Radiograph of the Chest 1 View INDICATION: Aspiration. TECHNIQUE: Frontal view of the chest. COMPARISON: 07/17/2023 FINDINGS: Lungs and pleural spaces: There is new generalized interstitial thickening. New patchy infiltrates in both lung bases left greater than right and trace left pleural effusion. No pneumothorax. Heart: Stable cardiomegaly. Mediastinum: Normal contour. Bones/joints: Degenerative changes noted throughout the spine and both shoulders. No lytic or blastic lesions noted. Soft tissues: No abnormality noted. No radiopaque foreign body noted. Upper abdomen: No abnormality noted. IMPRESSION: Generalized pneumonitis with left lower lobe pneumonia and small pleural effusion. Left basilar infiltrate could reflect the consequence of mucous plugging. Findings typical of but not diagnostic for aspiration. ACT 112: Negative or not required by law. Electronically signed by Jasmin Yadav 05-01-2024 13:11 PM Discharge Plan Visit Data Chief Complaint: Fall Stated Complaint: FALL, LAC TO HEAD ED Provider: Kathy Christie Discharge Problem: Aspiration pneumonia, UTI (urinary tract infection), Head injury, Laceration of head Forms Stand Alone Forms: [facility] Prescriptions Prescriptions: No Action (DME) Wheeled Walker Misc See Rx Instructions .Route Qty: 1 0RF Rx Instructions: 4 wheeled walker with seat and brakes Gemtesa 75 mg tablet 75 mg PO QAM Qty: 90 3RF Rx Instructions: Take one tablet daily. lansoprazole [Prevacid] 30 mg capsule,delayed release(DR/EC) 30 mg PO QAM Qty: 90 3RF nebivolol [Bystolic] 10 mg tablet 10 mg PO QAM Qty: 90 3RF escitalopram oxalate 10 mg tablet 10 mg PO QAM Qty: 90 1RF Eliquis 5 mg tablet 5 mg PO BID Qty: 180 1RF Hold Instructions: Resume on 03/12/23. losartan [Cozaar] 100 mg tablet 100 mg PO QAM Qty: 90 1RF anastrozole 1 mg tablet 1 mg PO DAILY Qty: 90 3RF nitrofurantoin monohyd/m-cryst [Macrobid] 100 mg capsule 100 mg PO BID 7 Days Qty: 14 0RF Rx Instructions: must administer with a meal/food methenamine hippurate [Hiprex] 1 gram tablet 1 g PO BID Qty: 180 3RF conjugated estrogens 0.625 mg/gram cream 0.625 mg vaginal DAILY Rx Instructions: apply daily for 2 weeks, then apply twice weekly. multivitamin [Daily Multi-Vitamin] tablet 1 tab PO QAM nitroglycerin [Nitrostat] 0.4 mg tablet, sublingual 0.4 mg sublingual DIRECTED PRN (Reason: Chest Pain) cholecalciferol (vitamin D3) [Vitamin D3] 25 mcg (1,000 unit) Tablet 25 mcg PO QAM cranberry extract 50 mg Tablet,Chewable 100 mg PO QAM cyanocobalamin (vitamin B-12) 1,000 mcg/mL solution 1,000 mcg IM MONTHLY Rx Instructions: inject 1ml once a month Referrals Referrals: Charlette Loza DO [Primary Care Provider] -
[2024-05-01 14:10] LABS: BUN Creatinine Ratio 26.9 (10-20); Calcium 8.6 mg/dl (8.6-10.3); Creatinine Clr Calc Pharmacy 61.6 ml/min; Potassium 3.9 mmol/L (3.5-5.1)
--- NOTE | 2024-05-01 14:15 | History & Physical Report ---
Date of Service May 01, 2024 Assessment & Plan (1) UTI (urinary tract infection): Plan: Symptoms of confusion x 3 days, worsened 1 day [employer] which is when urinalysis completed, pt prescribed Macrobid but did not take any doses; ? whether UTI played role in fall - Admit - No documented history of Pseudomonas on previous urine cultures - CBC w/ leukocytosis, neutrophil predominant - CMP grossly WNL, elevated BUN/Cr ratio - UA shows evidence of infection with renal epithelial cells and calcium oxalate crystals - Pending cx - Outpatient medications- Methenamine hippurate 1g BID - H/o urinary incontinence and follows with urology; On vibegron 75mg daily - CBC + BMP am - Ceftriaxone 2g IV q24hr - Zofran 4mg IV q6hr (2) Aspiration pneumonitis: Plan: Multiple episodes of N/V while in ED; provided with Zofran + Reglan which provided relief - No known episodes of aspiration, no difficulties with food/swallowing - No current respiratory symptoms and lung sounds WNL - CXR generalized pneumonitis with left lower lobe pneumonia and small pleural effusion, left basilar infiltrate could reflect a consequence of the mucous plugging, findings typical but not diagnostic for aspiration - Managed w/ Rocephin as above, no atypical coverage added at this time - Incentive spirometer (3) Status post fall: Plan: Suspected to be mechanical in nature - Struck right face; required 1 suture; associated ecchymosis and edema developing - CT head revealed laceration hematoma to right frontal and periorbital soft tissues - PT/OT placed - Laceration R head, sutured and dressed; developing ecchymosis throughout R face w/o abnormalities in EOMs - EKG pending - Head CT w/o acute findings - Associated N/V currently and [facility]- Continue prn tx Plan 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 Noted to have UTI from labs 04/30/24. ED course: CBC WBC 13.95, neutrophil predominant (11.49), otherwise grossly WNL; CMP grossly WNL with exception of BUN/creat/26.9, glucose 130; calcium 8.6; CXR generalized pneumonitis with left lower lobe pneumonia and small pleural effusion, left bas ilar infiltrate could reflect consequence of mucous plugging, findings typical but not diagnostic for aspiration; head CT with laceration hematoma to the right frontal and periorbital soft tissue, cerebral atrophy, no acute changes; cervical spine CT no acute cervical spine fracture or subluxation, interstitial pulmonary edema partially visualizes bilateral pleural effusions without lung apices,; Provided with Zofran x 2, metoclopramide, Rocephin, and azithromycin in ED, as well as vaccine. Patient is an 88-year-old female PMHx dementia, recurrent UTIs, HTN, arthritis, anxiety, H/o of BCA (01/2023), and chronic deep vein thrombosis of leg presenting for recent fall resulting in striking her right face with associated laceration. UTI noted from urinalysis completed 04/30/2024, culture pending, prescribed Macrobid but did not take any doses of antibiotic. Both sons are present in room at time of visit and help to provide a history. Patient states that she was using her walker to walk and can supplement the other hand, thinks that she may have run into something on the ground or simply tripped over her feet causing her to strike her face (right forehead) on a wardrobe. States that she did not have any symptoms of dizziness, lightheadedness, chest pain, or shortness of breath prior to the fall. Had assistance in getting up. Had associated nausea/vomiting multiple times secondary to the fall, but has not been happening prior to this. Also complaining of ongoing headache in the area where contact was made. Patient continues to state that she is just tired. Additionally, p atient was noted to have been more confused the past 3 days [employer], which worsened 1 day [employer] and prior to the fall. Her son notes that this usually is the pattern when she is getting a UTI, and she will become agitated at times. Also noted to have minimal swelling in bilateral lower extremities, which comes and goes per patient. No reported episodes of dysphagia or difficulties swallowing, and no witnessed episodes of aspiration. Denying chest pain, shortness of breath, palpitations, diarrhea/constipation, dysuria, LUTS, numbness/tingling, vision changes, or weakness. Patient is on Eliquis 5 mg twice daily for chronic DVT of L leg, s/p TKA left side. Patient took all a.m. medications. Please see Dr. De Leon's attestation for adjustments/additions to treatment plan. Allergies Allergy/AdvReac Type Severity Reaction Status Date / Time codeine Allergy Unknown unknown Verified 05/01/24 14:47 reaction Home Medications Medication Instructions Recorded Confirmed Type multivitamin (Daily Multi-Vitamin 1 tab PO QAM 02/12/19 05/08/24 History tablet) nitroglycerin 0.4 mg sublingual 0.4 mg sublingual DIRECTED PRN 04/09/21 05/08/24 History tablet (Nitrostat) Chest Pain Wheeled Walker #1 ea 05/20/22 05/08/24 Rx cholecalciferol (vitamin D3) 25 25 mcg PO QAM 02/27/23 05/08/24 History mcg (1,000 unit) tablet (Vitamin D3) cranberry extract 50 mg chewable 100 mg PO QAM 02/27/23 05/08/24 History tablet cyanocobalamin (vitamin B-12) 1,000 mcg IM MONTHLY 02/27/23 05/08/24 History 1,000 mcg/mL injection solution conjugated estrogens 0.625 mg/gram 0.625 mg vaginal DAILY 04/17/23 05/08/24 History vaginal cream methenamine hippurate 1 gram 1 g PO BID #180 tabs 04/17/23 05/08/24 Rx tablet (Hiprex) vibegron 75 mg tablet (Gemtesa) 75 mg PO QAM #90 tabs 08/04/23 05/08/24 Rx lansoprazole 30 mg capsule,delayed 30 mg PO QAM #90 caps 11/01/23 05/08/24 Rx release (Prevacid) nebivolol 10 mg tablet (Bystolic) 10 mg PO QAM #90 tabs 12/25/23 05/08/24 Rx escitalopram oxalate 10 mg tablet 10 mg PO QAM #90 tabs 01/15/24 05/08/24 Rx apixaban 5 mg tablet (Eliquis) 5 mg PO BID #180 tabs 03/14/24 05/08/24 Rx losartan 100 mg tablet (Cozaar) 100 mg PO QAM #90 tabs 03/18/24 05/08/24 Rx anastrozole 1 mg tablet 1 mg PO DAILY #90 tabs 04/17/24 05/08/24 Rx Oxygen Home #1 ea 05/09/24 05/09/24 Rx Past Med/Surg History Problem List (Updated 05/06/24 @ 12:33 by Carol Kim PA-C) Elevated brain natriuretic peptide (BNP) level Aspiration pneumonitis Status post fall Laceration of head (Acute) Head injury (Acute) UTI (urinary tract infection) (Acute) Aspiration pneumonia (Acute) Subconjunctival hemorrhage of right eye Abnormal mammogram Venous insufficiency of both lower extremities Ovarian cyst History of breast cancer (01/2023) 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 Hypertension (Chronic) Insomnia (Chronic) Mitral regurgitation (Chronic) "Mild" follows with [facility] ([facility]) Urinary Incontinence Diverticulosis Lumbar disc disease TMJ arthritis --per medical record, son is unsure. 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 Dementia "early stages" per sons. alert and oriented x3 "most times". ALECIALanny Cabello (son) signs all consents and on file. Surgical History History of lumpectomy of left breast (03/06/23) Dr. Farias History of cataract surgery bilateral H/O colonoscopy Hx of breast surgery (~2003) Breast aspiration S/P bilateral salpingo-oophorectomy S/P knee replacement L Knee H/O: hysterectomy S/P cholecystectomy History of carpal tunnel surgery of right wrist Family History Father , 82yo COPD (chronic obstructive pulmonary disease) Smoker Mother , 76yo Pancreatic cancer Brother Natural with unknown cause Daughter No problems noted. Son No problems noted. Son No problems noted. Son No problems noted. Son No problems noted. Other No family history of adverse response to anesthesia No pertinent family history Denies family history of Colon cancer Ovarian cancer Prostate cancer Myocardial infarction Social History Smoking Status: Never smoker Second Hand Exposure: Yes (As a child); Hx Alcohol Use: No Hx Substance Use: No Preferred Language: Danish Communication Ability: Effective Communication Ability Comment: alert and oriented x3 "most times" - son Delio is POLanny Visual Impairment: No Limitations Hearing Ability: Hard of Hearing Assistant Corporate Controller Required: No Beliefs That Will Affect Care: None marital status: Current Living Situation: Family Current Living Situation Comment: below [address] current occupational status: retired and other current occupation: Housewife How many Children do You have: 5 Feels Safe at Home: Yes Childhood Exposure to Second-Hand Smoke: Yes Diet: regular caffeine: Yes (3-4 cups/day) during the past year weight has: remained stable Physical Activity Frequency Comment: walking Seatbelt Use: always Assistive Devices: Walker Review of Systems Review of Systems: All systems reviewed & are unremarkable except as noted in Subjective Physical Exam Physical Exam: General: No acute distress Skin: Warm and dry Head: Normocephalic; R side of head with ecchymosis and sutured head lac, covered in dressing. Ecchymosis from hair line to below orbit Eyes: PERRL, conjunctivae clear, sclera non-icteric; EOM intact w/o pain ENT: External ear and ear canal without swelling; nose atraumatic; good dentition Neck: Supple, no LAD Cardio: RRR, no M/G/R, S1 and S2 normal Resp: No respiratory distress, Lungs CTA in all lobes bilaterally, no wheezes, rales, or rhonchi Abdomen: Soft, symmetric, nontender; no distention; No masses or hepatosplenomegaly; Bowel sounds normoactive MSK: No deformities, full ROM throughout; pulses palpable and equal; trace edema bilateral LE. Neuro: Awake, alert; Muscle strength 4/5 bilaterally in UE/LE; Sensation intact bilaterally; CN intact Psych: Appropriate mood and affect Patient's sons (2) are in room at time of visit. Results & Data Results & Data Vital Signs (Past 12 Hours) Vital Signs Temp Pulse Resp BP Pulse Ox O2 Del Method 05/01/24 12:23 59 L 05/01/24 11:58 36.7 C 60 18 170/91 H 93 Room Air Laboratory Results 05/01/24 13:30 WBC 13.95 H RBC 4.47 Hgb 13.0 Hct 39.4 MCV 88.1 MCH 29.1 MCHC 33.0 RDW Std Deviation 46.4 H RDW Coeff of Cecy 14.4 Plt Count 291 MPV 11.2 Immature Gran % (Auto) 0.6 Neut % (Auto) 82.4 Lymph % (Auto) 9.3 Ceiba % (Auto) 6.7 Eos % (Auto) 0.7 Baso % (Auto) 0.3 Neut # (Auto) 11.49 H Lymph # (Auto) 1.30 Ceiba # (Auto) 0.94 H Eos # (Auto) 0.10 Baso # (Auto) 0.04 Immature Gran # (Auto) 0.08 Sodium 138 Potassium 3.9 Chloride 107 Carbon Dioxide 21 Anion Gap 10 BUN 18 Creatinine 0.67 Est Cr Clr Drug Dosing 61.6 eGFR 83.49 BUN/Creatinine Ratio 26.9 H Glucose 130 H Calcium 8.6 Diagnostic Findings Cervical Spine CT 05/01/24 12:03 CT OF THE CERVICAL SPINE WITHOUT CONTRAST CLINICAL HISTORY: Fall. COMPARISON STUDY: Cervical spine CT April 09, 2021. TECHNIQUE: Helical axial images of the cervical spine were obtained without IV contrast. Sagittal and coronal reconstructions were viewed. Automated exposure control was utilized for the study. A dose lowering technique was utilized adhering to the principles of ALARA. FINDINGS: There are no cervical spine fractures. Severe degenerative changes at the C1-C2 articulation are noted. There is severe multilevel facet arthrosis and moderate degenerative disc disease. Central canal and neural foramen are suboptimally assessed given CT technique. Interlobular septal thickening and partially visualize bilateral pleural effusions within the lung apices are noted. IMPRESSION: 1. No acute cervical spine fracture or subluxation. 2. Interstitial pulmonary edema and partially visualizes bilateral pleural effusions within the lung apices. ACT 112: Negative or not required by law. Electronically signed by: Hernandez Cuadra M.D. 05/01/2024 12:[address] 05/01/24 12:03 EXAM: CT Head Without Intravenous Contrast INDICATION: Fall. Anticoagulated. TECHNIQUE: Axial computed tomography images of the head/brain without intravenous contrast. Sagittal and/or coronal reformats are provided. Sagittal and coronal reformatted images were created and reviewed. This CT exam was performed using one or more of the following dose reduction techniques: automated exposure control, adjustment of the mA and/or kV according to patient size, and/or use of iterative reconstruction technique. COMPARISON: No relevant prior studies available. FINDINGS: Limitations: None. Brain and extra-axial spaces: There is age appropriate cortical atrophy and chronic ischemic periventricular white matter hypodensity. No acute infarct, hemorrhage or mass noted. Bones/joints: Imaging includes orbits and maxillary sinuses. No fracture noted. Soft tissues: There is a laceration and hematoma of the right frontal and periorbital soft tissues. Vasculature: No acute abnormality noted. Sinuses: There is mild bilateral frontal and right maxillary sinus mucosal thickening. Widely patent bilateral maxillary antrectomy defects noted. No layering sinus fluid. Mastoid air cells: No mastoid effusion. Orbits: No significant abnormality noted. IMPRESSION: 1. There is a laceration and hematoma of the right frontal and periorbital soft tissues. 2. Cerebral atrophy. No acute changes. ACT 112: Negative or not required by law. Electronically signed by Jasmin Yadav 05-01-2024 12:45 PM Chest X-Ray 05/01/24 12:30 EXAM: Radiograph of the Chest 1 View INDICATION: Aspiration. TECHNIQUE: Frontal view of the chest. COMPARISON: 07/17/2023 FINDINGS: Lungs and pleural spaces: There is new generalized interstitial thickening. New patchy infiltrates in both lung bases left greater than right and trace left pleural effusion. No pneumothorax. Heart: Stable cardiomegaly. Mediastinum: Normal contour. Bones/joints: Degenerative changes noted throughout the spine and both shoulders. No lytic or blastic lesions noted. Soft tissues: No abnormality noted. No radiopaque foreign body noted. Upper abdomen: No abnormality noted. IMPRESSION: Generalized pneumonitis with left lower lobe pneumonia and small pleural effusion. Left basilar infiltrate could reflect the consequence of mucous plugging. Findings typical of but not diagnostic for aspiration. ACT 112: Negative or not required by law. Electronically signed by Jasmin Yadav 05-01-2024 13:11 PM Supervising Physician Co-Signing Physician Notes I personally saw and examined the patient. I independently reviewed the labs, EKG, imaging, problem list, medication list, past medical history and family history. I verified all marmolejo points and agree with Elyssa Green PA-C with the following exceptions and/or additions: 88 year old female presents to the ER due to fall. More confused prior to this and diagnosed with UTI. Multiple episodes of vomiting in the ER ?secondary to pain medications. O/E HS RRR, no murmurs, Chest CTAB, Abdo SNT, no CVA tenderness A/P UTI - ceftriaxone, follow up urine culture Aspiration pneumonitis - incentive spirometer Fall - PT/OT PG Care Time/CCT Total # of Minutes Spent Total Time Spent with Patient: Total time spent is greater than 50% in coordination of care (as documented) at patient's floor/unit and/or counseling patient: Coding Level of Care Code 25603 INT INP/OBS CARE MIN Diagnoses UTI (urinary tract infection) N39.0 Aspiration pneumonitis J69.0 Status post fall Z91.81 Time Spent (min) 65
[2024-05-01] MEDS ORDERED: NITROGLYCERIN SL 0.4 MG/TAB TAB SL PRN (17:17)
[2024-05-01] MEDS ORDERED: POLYETHYLENE (MIRALAX) 17 GM PACK PO PRN (17:17)
[2024-05-01] MEDS ORDERED: MAGNESIUM HYDROXIDE SUSP 30 ML UDC PO PRN (17:17)
[2024-05-01] MEDS ORDERED: ONDANSETRON INJ 2 MG/ML 2 ML VIAL IV PRN (17:17)
[2024-05-01 20:36] LABS: Appearance Urine Cloudy (Clear); Bacteria Urine Automated 4+ (None Seen); Bilirubin Urine Negative (Negative); Blood Urine 1+ (Negative); Color Urine Yellow; Epithelial Cell Urine Auto 0-2 /hpf (0-2); Glucose Urine UA Negative (Negative); Ketones Urine 1+ (Negative); Leukocyte Esterase Urine 2+ (Negative); Nitrite Urine Positive (Negative); Protein Urine Negative (Negative); RBC Urine Automated 0-2 /hpf (0-2); Specific Gravity Urine 1.013 (1.000-1.030); Urobilinogen Urine Negative (Negative); WBC Urine Automated >50 /hpf (0-5); pH Urine 5.5 (4.5-7.5)
[2024-05-01] MEDS: METOPROLOL TARTRATE 50 MG TAB PO SCH (22:12)
[2024-05-01] MEDS: METHENAMINE HIPPURATE 1 GM TAB PO SCH (22:13)
[2024-05-01] MEDS: LACTATED RINGER'S 1,000 ML IV SCH (22:13)
[2024-05-02 06:31] LABS: BUN Creatinine Ratio 24.2 (10-20); Calcium 8.2 mg/dl (8.6-10.3); Potassium 3.7 mmol/L (3.5-5.1)
[2024-05-02 06:33] LABS: Hematocrit (blood only) 33.1 % (37.0-47.0); Mean Corpuscular Hemoglobin 29.7 pg (25.0-34.0); Mean Corpuscular Hgb Conc 33.2 g/dL (32.0-36.0); Mean Corpuscular Volume 89.5 fL (80.0-100.0); Mean Platelet Volume 11.3 fL (9.4-12.4); Platelet Count 257 K/uL (130-400); RDW Coefficient of Variation 14.6 % (11.5-14.5); RDW Standard Deviation 47.4 fL (36.4-46.3); White Blood Count 8.84 K/ul (4.8-10.8)
--- NOTE | 2024-05-02 08:34 | Hospitalist Progress Note ---
Date of Service May 02, 2024 Assessment & Plan (1) UTI (urinary tract infection): Plan: Presented after mechanical fall at home in the setting of confusion x 3 days prior to admission. Recently prescribed Macrobid for acute UTI, but did not take any doses prior to admission - UA grossly infected on admission; urine culture showing pinpoint growth, reincubating -- continue to monitor - No documented history of Pseudomonas on previous urine cultures - Leukocytosis on admission, resolved - Follows with urology outpatient - Continue Methenamine hippurate 1g BID - Continue Vibegron 75 mg daily - Continue Ceftriaxone 2 g IV Q24H (2) Aspiration pneumonitis: Plan: Multiple episodes of N/V while in ED; provided with Zofran + Reglan which provided relief - CXR generalized pneumonitis with left lower lobe pneumonia and small pleural effusion, left basilar infiltrate could reflect a consequence of the mucous plugging, findings typical but not diagnostic for aspiration - No known episodes of aspiration, no difficulties with food/swallowing - No current respiratory symptoms and lung sounds WNL - Managed w/ Rocephin as above, no atypical coverage added at this time; consider adding atypical coverage if respiratory symptoms develop - Incentive spirometer (3) Status post fall: Plan: Suspected to be mechanical in nature - Struck right face resulting in laceration, sutured and dressed in ED; associated ecchymosis and edema developing > Remove suture after 1 week - CT head revealed laceration hematoma to right frontal and periorbital soft tissues - CT cervical spine revealed no acute cervical spine fractures or subluxations; does note interstitial pulmonary edema and partially visualizes bilateral p leural effusions within the lung apices - Acute blood loss anemia with hgb of 11.0 -- stable, not requiring transfusion. 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 The chart was reviewed. Case discussed with [facility]. Agree with assessment and plan Subjective Patient seen and evaluated at bedside. She reports feeling better today. She denies any dysuria at this time. Denies headache, visual changes, chest pain, S OB, abdominal pain, or nausea. We discussed continuing her current antibiotic while her urine culture sensitives are pending. She reports having a good appetite. No additional complaints or concerns at this time. Physical Exam Physical Exam: General: No acute distress, nondiaphoretic, well-developed, well-nourished. Skin: The skin was without rashes, erythema, edema. HEENT: Sutured head lac with dressing clean, dry, intact. Developing swelling and ecchymosis to R side of head from hair line to below orbit. PERRLA. Cardiac: Regular rate and rhythm without murmurs gallops or rubs. Pulm: Clear to auscultation bilaterally without wheezes, rales or rhonchi. No respiratory distress. 93% on room air. Abdominal:Soft, nontender, nondistended. Bowel sounds present. Neuro: A&O x3. No focal neurological deficits. Results & Data Results & Data Vital Signs (Past 12 Hours) Vital Signs Temp Pulse Pulse Resp BP Pulse Ox O2 Del Method 05/02/24 08:14 98.6 F 68 16 157/81 H 91 Room Air 05/01/24 21:50 97.3 F L 71 17 147/83 H 93 Room Air 05/01/24 20:35 Room Air Laboratory Results Reviewed CBC Reviewed BMP Reviewed UA and urine cultures PG Care Time/CCT Total # of Minutes Spent Total Time Spent with Patient: Total time spent is greater than 50% in coordination of care (as documented) at patient's floor/unit and/or counseling patient: Coding Level of Care Code 24886 SUB INP/OBS CARE 2/35MIN Diagnoses UTI (urinary tract infection) N39.0 Aspiration pneumonitis J69.0 Status post fall Z91.81
[2024-05-02] MEDS: ANASTROZOLE 1 MG TAB PO SCH (09:58)
[2024-05-02] MEDS: CHOLECALCIFEROL 25 MCG (1000 UNITS) TAB PO SCH (09:59)
[2024-05-02] MEDS: PANTOprazole 40 MG TAB PO SCH (09:59)
[2024-05-02] MEDS: LOSARTAN POTASSIUM 50 MG TAB PO SCH (09:59)
[2024-05-02] MEDS: ESCITALOPRAM OXALATE 10 MG TAB PO SCH (09:59)
[2024-05-02] MEDS: VIBEGRON 75 MG TAB PO SCH (10:00)
--- NOTE | 2024-05-02 11:41 | Electrocardiogram Report ---
Test Reason : Blood Pressure : */* mmHG Vent. Rate : 69 BPM Atrial Rate : 69 BPM P-R Int : 162 ms QRS Dur : 76 ms QT Int : 450 ms P-R-T Axes : 58 62 26 degrees QTcB Int : 482 ms Poor data quality, interpretation may be adversely affected Normal sinus rhythm Nonspecific T wave abnormality Abnormal ECG When compared with ECG of 21-Feb-2023 08:34, No significant change was found Confirmed by Khai Lamar ([id number]) on 05/02/2024 11:41:06 AM Referred By: REFERRED SELF Confirmed By: Khai Lamar
[2024-05-02] MEDS: cefTRIAXone SODIUM 2,000 MG/50 ML BAG IV SCH (14:59)
[2024-05-03 06:35] LABS: Hematocrit (blood only) 34.5 % (37.0-47.0); Hemoglobin 11.4 g/dl (12.0-16.0); Mean Corpuscular Hemoglobin 29.6 pg (25.0-34.0); Mean Corpuscular Volume 89.6 fL (80.0-100.0); Mean Platelet Volume 10.8 fL (9.4-12.4); Platelet Count 230 K/uL (130-400); RDW Coefficient of Variation 14.6 % (11.5-14.5); Red Blood Count 3.85 M/uL (4.20-5.40)
[2024-05-03 06:56] LABS: BUN Creatinine Ratio 18.9 (10-20); Calcium 8.2 mg/dl (8.6-10.3); Creatinine Clr Calc Pharmacy 53.6 ml/min
--- NOTE | 2024-05-03 07:43 | Hospitalist Progress Note ---
Date of Service May 03, 2024 Assessment & Plan (1) UTI (urinary tract infection): Plan: Presented after mechanical fall at home in the setting of confusion x 3 days prior to admission. Recently prescribed Macrobid for acute UTI, but did not take any doses prior to admission. Recent Ecoli UTI on 03/28, pansensitive. Follows with urology outpatient +UA on admission Ceftriaxone IV continued Urine cx pin-point growth, follow final cx/sensitivites Continue Methenamine hippurate 1g BID Continue Vibegron 75 mg daily (2) Aspiration pneumonitis: Plan: Multiple episodes of N/V while in ED; provided with Zofran + Reglan which provided relief CXR generalized pneumonitis with left lower lobe pneumonia and small pleural effusion, left basilar infiltrate could reflect a consequence of the mucous plugging, findings typical but not diagnostic for aspiration No known episodes of aspiration, no difficulties with food/swallowing No current respiratory symptoms and lung sounds WNL Managed w/ Rocephin as above, no atypical coverage added at this time; consider adding atypical coverage if respiratory symptoms develop . Continues on Ceftriaxone IV above and can consider atypical coverage but denies respiratory sx at this time and remains 96% on RA. Continue IS. Speech seen/no issues (3) Status post fall: Plan: Suspected to be mechanical in nature Struck right face resulting in laceration, sutured and dressed in ED; associated ecchymosis and edema developing > Remove suture after [address] head revealed laceration hematoma to right frontal and periorbital soft tissues CT cervical spine revealed no acute cervical spine fractures or subluxations; does note interstitial pulmonary edema and partially visualizes bilateral pleural effusions within the lung apices Acute blood loss anemia with hgb of 11.0--> 11.4 and stable, not requiring transfusion. Continue to monitor - Eliquis on hold for now, can likely resume in AM - PT/OT evals placed /pending (4) Elevated brain natriuretic peptide (BNP) level: Plan: Notable on admission BNP to 762 was seen by PCP in October w/ reported leg edema, is on nebivolol 10mg, losartan 100mg daily but no diuretic. Given combination and fall on admission w/ pleural effusions and trace-1+ LE edema (but no hypoxia/SOB reported), will check ECHO for completeness as last in system in 2019 which noted mild AI, mild-mod MR/TR at that time. 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 PT/OT consults pending Admission and Anticipated Discharge Date Admission Date: May 01, 2024 Supervising Physician Co-Signing Physician Notes The patient was not seen by me. The chart was reviewed. Case discussed with GERA Sanchez. Agree with assessment and plan Subjective Evaluated this morning, sitting up in the recliner chair. Reports living at the [place], needing to urinate. Has purewick in room, cloudy, but not hooked up. Denies pain at this time, did order low dose oxycodone 2.5mg if needed. PT/OT consults pending. Denies fever/chills, chest pain at this time. Questions/concerns addressed at this time. Physical Exam 2 Physical Exam: General: 88 female sitting up in chair, NAD but reporting needing to urinate HEENT w/ laceration repair intat, +ecchymosis, mmm slightly dry, trachea midline Resp: CTA, slightly diminished in the bases,no wheezing/rales, on room air CV: RRR, +systolic murmur, trace-1+ LE edema, pulses present GI: +BS, soft/slight suprapubic fullness/distension : purewick canister with concentrated urine MSK/Neuro: nonfocal, answering questions appropriately, moves all extremitites, generalized weakness Psych: Alert to person/place, time , intermittent to events, cooperative and thankful for care Results & Data Results & Data Vital Signs (Past 12 Hours) Vital Signs Temp Pulse Resp BP Pulse Ox O2 Del Method 05/03/24 07:36 36.5 C 59 L 16 190/75 H 96 Room Air 05/02/24 23:29 Room Air Laboratory Results 05/03/24 06:12 05/03/24 06:12 PG Care Time/CCT Total # of Minutes Spent Total Time Spent with Patient: Total time spent is greater than 50% in coordination of care (as documented) at patient's floor/unit and/or counseling patient: Coding Level of Care Code 50304 SUB INP/OBS CARE 2/35MIN Diagnoses UTI (urinary tract infection) N39.0 Aspiration pneumonitis J69.0 Status post fall Z91.81 Elevated brain natriuretic peptide (BNP) level R79.89
[2024-05-03] MEDS: hydrOXYzine HCl 10 MG TAB PO SCH (22:04)
--- NOTE | 2024-05-04 00:41 | XCELERA ---
[id number]
[2024-05-04 06:41] LABS: Hemoglobin 12.6 g/dl (12.0-16.0); Mean Corpuscular Hemoglobin 29.3 pg (25.0-34.0); Mean Corpuscular Hgb Conc 33.2 g/dL (32.0-36.0); Mean Corpuscular Volume 88.4 fL (80.0-100.0); Mean Platelet Volume 10.8 fL (9.4-12.4); Platelet Count 259 K/uL (130-400); RDW Coefficient of Variation 14.5 % (11.5-14.5); RDW Standard Deviation 46.5 fL (36.4-46.3); White Blood Count 9.56 K/ul (4.8-10.8)
[2024-05-04 07:01] LABS: Calcium 8.3 mg/dl (8.6-10.3); Creatinine Clr Calc Pharmacy 57.5 ml/min; Magnesium 1.9 mg/dl (1.7-2.4); Potassium 3.7 mmol/L (3.5-5.1)
[2024-05-04] MEDS: CYANOCOBALAMIN 1000 MCG/ML VIAL IM SCH (07:56)
[2024-05-04] MEDS: APIXABAN 5 MG TABLET PO SCH (09:07)
[2024-05-04] MEDS: INFLUENZA VACC TS2024-25(65y+)/PF (IIV3) 0.5mL Syr IM ONE (11:45)
--- NOTE | 2024-05-04 14:52 | Hospitalist Progress Note ---
Date of Service May 04, 2024 Assessment & Plan (1) UTI (urinary tract infection): Plan: Presented after mechanical fall at home in the setting of confusion x 3 days prior to admission. Recently prescribed Macrobid for acute UTI, but did not take any doses prior to admission. Recent Ecoli UTI on 03/28, pansensitive. Follows with urology outpatient +UA on admission Urine culture w/ E coli w/ resistance to Ampicillin, Bactrim Ceftriaxone IV continued, last dose 05/07 Continue Methenamine hippurate 1g BID Continue Vibegron 75 mg daily CBC/BMP reviewed: stable (2) Aspiration pneumonitis: Plan: Multiple episodes of N/V while in ED; provided with Zofran + Reglan which provided relief CXR generalized pneumonitis with left lower lobe pneumonia and small pleural effusion, left basilar infiltrate could reflect a consequence of the mucous plugging, findings typical but not diagnostic for aspiration Managed w/ Rocephin as above, no atypical coverage added at this time; consider adding atypical coverage if respiratory symptoms develop . (3) Status post fall: Plan: Suspected to be mechanical in nature Struck right face resulting in laceration, sutured and dressed in ED; associated ecchymosis and edema developing > Remove suture after 1 week (05/08) CT head revealed laceration hematoma to right frontal and periorbital soft tissues CT cervical spine revealed no acute cervical spine fractures or subluxations; does note interstitial pulmonary edema and partially visualizes bilateral pleural effusions within the lung apices Hgb WNL 05/04 - resumed Eliquis PT/OT evals p - recommending rehab patient lives w/ family and has home health, anticipate this plan on discharge (4) Elevated brain natriuretic peptide (BNP) level: Plan: Notable on admission BNP to 762 On Nebivolol 10mg, Losartan 100mg daily. Echo completed 05/04:normal LV size. Mild concentric LVH. LVEF 60-65%. no regional wall motion abnormalities. mild aortic regurgitation. severe biatrial enlargement. 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 Patient confused but alert at time of encounter. Daughter present at bedside. Patient endorses no complaints today. Physical Exam Constitutional: WD/WN, vitals as above Eyes: laceration repair intact + ecchymosis Respiratory: slightly diminished in lung bases but clear Cardiovascular: regular rate, systolic murmur Psychiatric: alert to person. Results & Data Results & Data Vital Signs (Past 12 Hours) Vital Signs Temp Pulse Resp BP Pulse Ox O2 Del Method 05/04/24 14:07 36.4 C L 66 16 162/81 H 93 Room Air 05/04/24 08:55 36.6 C 63 18 146/77 H 92 Room Air 05/04/24 08:00 Room Air 05/04/24 07:21 36.3 C L 60 16 199/81 H 91 Room Air PG Care Time/CCT Total # of Minutes Spent Total Time Spent with Patient: Total time spent is greater than 50% in coordination of care (as documented) at patient's floor/unit and/or counseling patient: Coding Level of Care Code 52094 SUB INP/OBS CARE 2/35MIN Diagnoses UTI (urinary tract infection) N39.0 Aspiration pneumonitis J69.0 Status post fall Z91.81 Elevated brain natriuretic peptide (BNP) level R79.89
[2024-05-04] MEDS: ACETAMINOPHEN 325 MG TAB PO PRN (20:24)
[2024-05-05 06:19] LABS: Hematocrit (blood only) 42.9 % (37.0-47.0); Hemoglobin 14.2 g/dl (12.0-16.0); Mean Corpuscular Hemoglobin 29.6 pg (25.0-34.0); Mean Corpuscular Hgb Conc 33.1 g/dL (32.0-36.0); Mean Corpuscular Volume 89.6 fL (80.0-100.0); Mean Platelet Volume 10.8 fL (9.4-12.4); Platelet Count 281 K/uL (130-400); RDW Coefficient of Variation 14.6 % (11.5-14.5); RDW Standard Deviation 46.4 fL (36.4-46.3); Red Blood Count 4.79 M/uL (4.20-5.40); White Blood Count 9.22 K/ul (4.8-10.8)
[2024-05-05 06:35] LABS: BUN Creatinine Ratio 12.3 (10-20); Calcium 8.8 mg/dl (8.6-10.3); Potassium 3.7 mmol/L (3.5-5.1)
--- NOTE | 2024-05-05 14:21 | Hospitalist Progress Note ---
Date of Service May 05, 2024 Assessment & Plan (1) UTI (urinary tract infection): Plan: Presented after mechanical fall at home in the setting of confusion x 3 days prior to admission. Recently prescribed Macrobid for acute UTI, but did not take any doses prior to admission. Recent Ecoli UTI on 03/28, pansensitive. Follows with urology outpatient +UA on admission Urine culture w/ E coli w/ resistance to Ampicillin, Bactrim Ceftriaxone IV continued, last dose 05/07 Continue Methenamine hippurate 1g BID Continue Vibegron 75 mg daily Patient's son expresses issues w/ urinary incontinence at home. She has seen urology in past. encouraged more frequent changing of briefs at home. Patient remains to have lingering confusion - discussed she likely also has hospital delirium w/ son. CBC/BMP reviewed: stable (2) Aspiration pneumonitis: Plan: Multiple episodes of N/V while in ED; provided with Zofran + Reglan which provided relief CXR generalized pneumonitis with left lower lobe pneumonia and small pleural effusion, left basilar infiltrate could reflect a consequence of the mucous plugging, findings typical but not diagnostic for aspiration (3) Status post fall: Plan: Suspected to be mechanical in nature Struck right face resulting in laceration, sutured and dressed in ED; associated ecchymosis and edema developing > Remove suture after 1 week (05/08) CT head revealed laceration hematoma to right frontal and periorbital soft tissues CT cervical spine revealed no acute cervical spine fractures or subluxations; does note interstitial pulmonary edema and partially visualizes bilateral pleural effusions within the lung apices Hgb WNL 05/04 - resumed Jorge PT/OT ken p - recommending rehab patient lives w/ family and has home health, anticipate this plan on discharge (4) Elevated brain natriuretic peptide (BNP) level: Plan: Notable on admission BNP to 762 On Nebivolol 10mg, Losartan 100mg daily. Echo completed 05/04:normal LV size. Mild concentric LVH. LVEF 60-65%. no regional wall motion abnormalities. mild aortic regurgitation. severe biatrial enlargement. severe pulmonary HTN Overnight sleep study 05/04 +. patient will require oxygen overnight on discharge. Discussed patient's echo findings with Dr. Kramer via a phone call - no need for cardiac intervention at this time. pulmonary HTN diagnostic w/ cath and unlikely to complete in this situation given patient's age and being asymptomatic. 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 discussed that patient is medically stable for d/c but family would like patient to remain in hospital pending mental status. discussed hospital delirium will improve upon discharge. Admission and Anticipated Discharge Date Admission Date: May 01, 2024 Subjective Patient seen and examined this morning with son at bedside. Patient alert but not oriented. Patient's son reports patient does have issues with her short term memory. Patient denied any complaints when asked. Physical Exam Constitutional: WD/WN, vitals as above Eyes: ecchymosis surrounding b/l eyes. Hematoma above right eye brow Respiratory: normal respiratory effort, lungs clear to auscultation Cardiovascular: RRR, no murmur, no edema Psychiatric: alert, pleasant Results & Data Results & Data Vital Signs (Past 12 Hours) Vital Signs Temp Pulse Pulse Resp BP Pulse Ox Pulse Ox 05/05/24 08:48 163/80 H 05/05/24 07:12 36.3 C L 60 18 200/83 H 92 05/05/24 07:00 05/05/24 05:00 60 92 05/05/24 03:02 56 L 90 O2 Del Method O2 Del Method 05/05/24 08:48 05/05/24 07:12 Room Air 05/05/24 07:00 Room Air 05/05/24 05:00 Room Air 05/05/24 03:02 Room Air PG Care Time/CCT Total # of Minutes Spent Total Time Spent with Patient: Total time spent is greater than 50% in coordination of care (as documented) at patient's floor/unit and/or counseling patient: Coding Level of Care Code 21562 SUB INP/OBS CARE 3/50MIN Diagnoses UTI (urinary tract infection) N39.0 Aspiration pneumonitis J69.0 Status post fall Z91.81 Elevated brain natriuretic peptide (BNP) level R79.89
[2024-05-05 20:03] VITALS: RESP 18; TEMP 97.9
[2024-05-06 07:24] LABS: Hematocrit (blood only) 42.6 % (37.0-47.0); Hemoglobin 14.4 g/dl (12.0-16.0); Mean Corpuscular Hemoglobin 29.4 pg (25.0-34.0); Mean Corpuscular Hgb Conc 33.8 g/dL (32.0-36.0); Mean Corpuscular Volume 87.1 fL (80.0-100.0); Mean Platelet Volume 10.7 fL (9.4-12.4); Platelet Count 285 K/uL (130-400); RDW Coefficient of Variation 14.4 % (11.5-14.5); RDW Standard Deviation 45.7 fL (36.4-46.3); Red Blood Count 4.89 M/uL (4.20-5.40); White Blood Count 9.38 K/ul (4.8-10.8)
[2024-05-06 07:46] LABS: Calcium 8.9 mg/dl (8.6-10.3); Creatinine Clr Calc Pharmacy 52.9 ml/min; Potassium 4.2 mmol/L (3.5-5.1)
[2024-05-06 08:28] VITALS: BP 143/79; PULSE 73; O2SAT 94
--- NOTE | 2024-05-06 12:46 | Discharge Summary ---
Discharge Summary Date of Service May 06, 2024 Principal Dx & Hospital Course #1 = Principal Diagnosis (1) UTI (urinary tract infection): Presented after mechanical fall at home in the setting of confusion x 3 days prior to admission. Recently prescribed Macrobid for acute UTI, but did not take any doses prior to admission. Urine culture w/ E coli w/ resistance to Ampicillin, Bactrim - Recieved Ceftriaxone inpatient and will be discharged with two additional days of Augmentin Continue Methenamine hippurate 1g BID and Vibegron 75 mg daily Patient's son expresses issues w/ urinary incontinence at home. Discussed how medication will not solve all of the issues. Discussed behavioral changes to prevent infection, ie frequent brief changes. Plan for discharge to home with HH today (2) Aspiration pneumonitis: Multiple episodes of N/V while in ED; provided with Zofran + Reglan which provided relief CXR generalized pneumonitis with left lower lobe pneumonia and small pleural effusion, left basilar infiltrate could reflect a consequence of the mucous plugging, findings typical but not diagnostic for aspiration Remains stable on room air, no cough. Recommend follow-up chest x-ray in 3 to 4 weeks to ensure resolution of infiltrates (3) Status post fall: Suspected to be mechanical in nature Struck right face resulting in laceration, sutured and dressed in ED; associated ecchymosis and edema developing > Remove suture after 1 week (05/08) CT head revealed laceration hematoma to right frontal and periorbital soft tissues CT cervical spine revealed no acute cervical spine fractures or subluxations; does note interstitial pulmonary edema and partially visualizes bilateral pleural effusions within the lung apices PT/OT evals - recommending rehab patient lives w/ family and has home health, confirmed with pt sonDelio 05/06 that this is what they would prefer (4) Elevated brain natriuretic peptide (BNP) level: Notable on admission BNP to 762 On Nebivolol 10mg, Losartan 100mg daily. Echo completed 05/04:normal LV size. Mild concentric LVH. LVEF 60-65%. no re gional wall motion abnormalities. mild aortic regurgitation. severe biatrial enlargement. severe pulmonary HTN - Previous Discussed with Dr. Kramer via a phone call - no need for cardiac intervention at this time. pulmonary HTN diagnostic w/ cath and unlikely to complete in this situation given patient's age and being asymptomatic. Overnight sleep study 11/30 +. patient will require oxygen overnight on discharge. . 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 and via phone 05/06 Notes For Next Care Provider Sutures need removed 05/08 Recommend follow-up chest x-ray in 3 to 4 weeks to ensure resolution of infiltrates Medication Changes From Visit augmentin BID x 2 days Admission HPI Per Admitting Provider 88-year-old female presenting s/p fall while walking with walker, striking right face. Noted to have UTI from labs 04/30/24. ED course: CBC WBC 13.95, neutrophil predominant (11.49), otherwise grossly WNL; CMP grossly WNL with exception of BUN/creat/26.9, glucose 130; calcium 8.6; CXR generalized pneumonitis with left lower lobe pneumonia and small pleural effusion, left basilar infiltrate could reflect consequence of mucous plugging, findings typical but not diagnostic for aspiration; head CT with laceration hematoma to the right frontal and periorbital soft tissue, cerebral atrophy, no acute changes; cervical spine CT no acute cervical spine fracture or subluxation, interstitial pulmonary edema partially visualizes bilateral pleural effusions without lung apices,; Provided with Zofran x 2, metoclopramide, Rocephin, and azithromycin in ED, as well as vaccine. Patient is an 88-year-old female PMHx dementia, recurrent UTIs, HTN, arthritis, anxiety, H/o of BCA (01/2023), and chronic deep vein thrombosis of leg presenting for recent fall resulting in striking her right face with associated laceration. UTI noted from urinalysis completed 04/30/2024, culture pending, prescribed Macrobid but did not take any doses of antibiotic. Both sons are present in room at time of visit and help to provide a history. Patient states that she was using her walker to walk and can supplement the other hand, thinks that she may have run into something on the ground or simply tripped over her feet causing her to strike her face (right forehead) on a wardrobe. States that she did not have any symptoms of dizziness, lightheadedness, chest pain, or shortness of breath prior to the fall. Had assistance in getting up. Had associated nausea/vomiting multiple times secondary to the fall, but has not been happening prior to this. Also complaining of ongoing headache in the area where contact was made. Patient continues to state that she is just tired. Additionally, patient was noted to have been more confused the past 3 days [employer]IPE [employer], which worsened 1 day [employer] and prior to the fall. Her son notes that this usually is the pattern when she is getting a UTI, and she will become agitated at times. Also noted to have minimal swelling in bilateral lower extremities, which comes and goes per patient. No reported episodes of dysphagia or difficulties swallowing, and no witnessed episodes of aspiration. Denying chest pain, shortness of breath, palpitations, diarrhea/constipation, dysuria, LUTS, numbness/tingling, vision changes, or weakness. Patient is on Eliquis 5 mg twice daily for chronic DVT of L leg, s/p TKA left side. Patient took all a.m. medications. Please see Dr. De Leon's attestation for adjustments/additions to treatment plan. Discharge Exam General: NAD, VS as above HEENT: signifcant bruising over right side of face down to neck, healing colors, with swelling over right eyebrow at site of laceration. Nontender to palpation. Resp: normal respiratory effort, lungs clear to auscultation CV: RRR, no murmur, Abd: normal bowel sounds, non tender, no hepatosplenomegaly Extremities: Moves all extremities, no edema Neuro: A&O x1, Discharge Plan Discharge Items Patient Disposition: Home - Home Health Services Reason For Visit: FALL, UTI Discharge Diagnosis: UTI Activity: Resume your previous activity Non-emergency contact: Primary Care Provider Call non-emergency contact if: you have any medication questions, your symptoms worsen and your pain is worsening Follow-up/Referrals: Charlette Loza DO [Primary Care Provider] - 05/10/24 11:00 am (Hospital follow up scheduld for May 10, 2024 at 11:00 am) Diet: Regular Addtl Attending Provider Instructions: Mrs. Cabello You were hospitalized after worsening confusion and a fall, this was found to be due to a UTI. You received IV antibiotics and will be discharged with two additional days of oral antibiotics, first dose is 12/3 AM. You also suffered a head laceration from the fall requiring 1 suture. These will need to be removed 05/08. Home health should be able to do this. If for some reason they are not able to, your PCP office can or can return to ED. - If the area of bruising is bothersome, can apply heat or ice. Tylenol for pain. You were also found to have lower oxygen levels overnight - recommend 2L of oxygen while sleeping. You do not need this on during the night. For the Caretakers of Ms. Cabello: * Anything you can do to have more time where her briefs are clean and dry is going to help prevent UTIs. Consider a toileting schedule (changing at regular intervals) * If there seems to be an issue with wiping front to back, consider having written instructions/pictures in the bathroom as reminders * Try limiting fluid intake at night to prevent nocturnal incontinence * Dementia is a progressive disease and there will likely be continued decline in her memory and function over time.I have attached some handouts to help take the best care. Home health - please remove sutures 05/08 or 05/09 ------ Follow-up appointments: Make an appointment with your primary care physician within one week of discharge. A copy of this summary will be sent to them. Every time you see your primary care physician, or any other doctor, bring your medication list, and a list of questions. CONTACT YOUR PRIMARY CARE PROVIDER if you experience any of the following: Shortness of breath or difficulty breathing Fevers or chills Feeling tired with normal activity or experiencing dizziness or fainting Difficulty following your treatment plan, or difficulty taking medications CALL 911 OR GO TO THE EMERGENCY DEPARTMENT if you experience any of the following: Severe abdominal pain or nausea/vomiting Severe chest pain, or chest pain that radiates (moves) to your jaw or arm Sudden, severe shortness of breath or difficulty breathing Thank you for allowing us to participate in your care. Pending Studies at Discharge: No Stand-Alone Forms: My [facility] Q Design, Smoking Cessation Medications and DC Order Prescriptions: New amoxicillin-pot clavulanate 875-125 mg tablet 1 tab PO BID 2 Days Qty: 4 0RF Continued (DME) Wheeled Walker Misc See Rx Instructions .Route Qty: 1 0RF Rx Instructions: 4 wheeled walker with seat and brakes Gemtesa 75 mg tablet 75 mg PO QAM Qty: 90 3RF Rx Instructions: Take one tablet daily. lansoprazole [Prevacid] 30 mg capsule,delayed release(DR/EC) 30 mg PO QAM Qty: 90 3RF nebivolol [Bystolic] 10 mg tablet 10 mg PO QAM Qty: 90 3RF escitalopram oxalate 10 mg tablet 10 mg PO QAM Qty: 90 1RF Eliquis 5 mg tablet 5 mg PO BID Qty: 180 1RF Hold Instructions: Resume on 03/12/23. losartan [Cozaar] 100 mg tablet 100 mg PO QAM Qty: 90 1RF anastrozole 1 mg tablet 1 mg PO DAILY Qty: 90 3RF methenamine hippurate [Hiprex] 1 gram tablet 1 g PO BID Qty: 180 3RF conjugated estrogens 0.625 mg/gram cream 0.625 mg vaginal DAILY Rx Instructions: apply daily for 2 weeks, then apply twice weekly. multivitamin [Daily Multi-Vitamin] tablet 1 tab PO QAM nitroglycerin [Nitrostat] 0.4 mg tablet, sublingual 0.4 mg sublingual DIRECTED PRN (Reason: Chest Pain) cholecalciferol (vitamin D3) [Vitamin D3] 25 mcg (1,000 unit) Tablet 25 mcg PO QAM cranberry extract 50 mg Tablet,Chewable 100 mg PO QAM cyanocobalamin (vitamin B-12) 1,000 mcg/mL solution 1,000 mcg IM MONTHLY Rx Instructions: inject 1ml once a month Discharge Orders: Discharge Order (Routine); Ordered 05/06/24 Ordered By: Carol Licea/Other Patient Handouts: Dementia Caregiver Communication, Dementia Caregivers Plan Future Admission Data Admit Date/Time: 05/01/24 15:06 Attending Provider: Lucy Briggs Admit Provider: Yo De Leon Primary Care Provider: Charlette Loza Other Providers: Yo De Leon; Wenceslao You [facility] Other Interventions: Discharge Summary Assessment (RN) Last Done: 05/06/24 12:52 Hospital Stay Data Consultations 05/01/24 14:03 ED Decision to Admit Stat Diagnostic Imagining Performed 05/01/24 12:03 CT cervical spine wo con Stat CT head/brain wo con Stat Pending Results Patient Have Any Pending Studies at Discharge: No Discharge Instructions Given to Patient (Per Discharging Provider) Mrs. Cabello You were hospitalized after worsening confusion and a fall, this was found to be due to a UTI. You received IV antibiotics and will be discharged with two additional days of oral antibiotics, first dose is 12/3 AM. You also suffered a head laceration from the fall requiring 1 suture. These will need to be removed 05/08. Home health should be able to do this. If for some reason they are not able to, your PCP office can or can return to ED. - If the area of bruising is bothersome, can apply heat or ice. Tylenol for pain. You were also found to have lower oxygen levels overnight - recommend 2L of oxygen while sleeping. You do not need this on during the night. For the Caretakers of Ms. Cabello: * Anything you can do to have more time where her briefs are clean and dry is going to help prevent UTIs. Consider a toileting schedule (changing at regular intervals) * If there seems to be an issue with wiping front to back, consider having written instructions/pictures in the bathroom as reminders * Try limiting fluid intake at night to prevent nocturnal incontinence * Dementia is a progressive disease and there will likely be continued decline in her memory and function over time.I have attached some handouts to help t daisha the best care. Home health - please remove sutures 05/08 or 05/09 ------ Follow-up appointments: Make an appointment with your primary care physician within one week of discharge. A copy of this summary will be sent to them. Every time you see your primary care physician, or any other doctor, bring your medication list, and a list of questions. CONTACT YOUR PRIMARY CARE PROVIDER if you experience any of the following: Shortness of breath or difficulty breathing Fevers or chills Feeling tired with normal activity or experiencing dizziness or fainting Difficulty following your treatment plan, or difficulty taking medications CALL 911 OR GO TO THE EMERGENCY DEPARTMENT if you experience any of the following: Severe abdominal pain or nausea/vomiting Severe chest pain, or chest pain that radiates (moves) to your jaw or arm Sudden, severe shortness of breath or difficulty breathing Thank you for allowing us to participate in your care. Supervising Physician Co-Signing Physician Notes GERA Supervision Note: I did not personally see or examine the patient today, but I verified all marmolejo points of GERA Kim's assessment and plan with the following exceptions/ad ditions: None Total Time Total Time Spent Total Time Spent (In Minutes): Time spent day of discharge 45 minutes including direct patient care, medication reconciliation, documentation, review of labs and images, and coordination of care. Coding Level of Care Code 30943 INP/OBS DISCH >30 MIN Diagnoses UTI (urinary tract infection) N39.0 Aspiration pneumonitis J69.0 Status post fall Z91.81 Elevated brain natriuretic peptide (BNP) level R79.89
== END 2024-05-06 14:05 | disposition home health service (06) | DRG 689 ==
LOC: ED 11:53 → SUATTDRO 15:06 → 3N 15:06